=== PATIENT | male | born 1930 | race Caucasian/White ===

== ENCOUNTER 2017-07-18 07:43 | Inpatient (IN) | payer MEDICARE ==
--- NOTE | 2017-07-18 08:15 | ED ---
GI Bleed HPI - General Chief complaint: GI Bleed Stated complaint: GI bleed Time Seen by Provider: 07/18/17 07:59 Source: patient, RN notes reviewed Mode of arrival: ambulatory Limitations: no limitations - History of Present Illness Initial comments: This 87-year-old male who states he had the onset this morning of bright red blood per rectum. He states he had a small a lot of bleeding about a week ago but today he had quite a bit. He has no prior history of GI bleeding no prior history of abdominal surgeries. He denies any lightheadedness dizziness or any overt abdominal pain. No prior history of hemorrhoids. No recent episodes of constipation. MD complaint: gross hematochezia - Related Data Home Medications Medication Instructions Recorded Confirmed Omeprazole [PriLOSEC] 20 mg PO HS 04/19/14 07/18/17 Lisinopril-Hctz 20-25 mg 1 tab PO HS 07/18/15 07/18/17 [Zestoretic 20-25] Allopurinol [Zyloprim] 300 mg PO HS 07/18/17 07/18/17 Aspirin EC [Ecotrin Low Dose] 81 mg PO HS 07/18/17 07/18/17 Simvastatin [Zocor] 10 mg PO HS 07/18/17 07/18/17 amLODIPine [Norvasc] 2.5 mg PO HS 07/18/17 07/18/17 Allergies Allergy/AdvReac Type Severity Reaction Status Date / Time Penicillins Allergy Rash/Hives Verified 07/18/17 09:08 Review of Systems ROS Statement: Those systems with pertinent positive or pertinent negative responses have been documented in the HPI. ROS Other: All systems not noted in ROS Statement are negative. 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, LEAKY HEART VALVE History of Any Multi-Drug Resistant Organisms: None Reported Past Surgical History: Adenoidectomy, Appendectomy, Joint Replacement, Tonsillectomy Additional Past Surgical History / Comment(s): CATARACTS, LT HIP REPLACEMENT, COLONOSCOPY/1 POLYP REMOVED(BENIGN), X4 EGD,S, HAD SURGURY ON "VALVE IN STOMACH " 1978 IN [place] Past Anesthesia/Blood Transfusion Reactions: No Reported Reaction Past Psychological History: No Psychological Hx Reported Smoking Status: Former smoker Past Alcohol Use History: Occasional Past Drug Use History: None Reported - Past Family History Father Family Medical History: Hypertension Additional Family Medical History / Comment(s): IN HIS LATE 30'S CEREBRAL HEMMORRAGE Mother Family Medical History: Dementia Additional Family Medical History / Comment(s): AGE 92 General Exam - General Exam Comments Initial Comments: This is a well-developed well-nourished awake alert oriented times 3 male Limitations: no limitations General appearance: alert, in no apparent distress Head exam: Present: atraumatic, normocephalic, normal inspection Eye exam: Present: normal appearance, PERRL, EOMI. Absent: scleral icterus, conjunctival injection, periorbital swelling ENT exam: Present: normal exam, mucous membranes moist Neck exam: Present: normal inspection. Absent: tenderness, meningismus, lymphadenopathy Respiratory exam: Present: normal lung sounds bilaterally. Absent: respiratory distress, wheezes, rales, rhonchi, stridor Cardiovascular Exam: Present: regular rate, normal rhythm, normal heart sounds. Absent: systolic murmur, diastolic murmur, rubs, gallop, clicks GI/Abdominal exam: Present: soft, normal bowel sounds. Absent: distended, tenderness, guarding, rebound, rigid, bruit, pulsatile mass, hernia Rectal exam: Present: heme (+) stool, other (Dark and bright red blood per rectum no tenderness palpation some evidence of external and internal hemorrhoids that are nontender. The bleeding is appear to be higher up than the rectum however.) exam: Present: normal inspection Extremities exam: Present: normal inspection, full ROM, normal capillary refill. Absent: tenderness, pedal edema, joint swelling, calf tenderness Back exam: Present: normal inspection Neurological exam: Present: alert, oriented X3, CN II-XII intact Psychiatric exam: Present: normal affect, normal mood Skin exam: Present: warm, dry, intact, normal color. Absent: rash Course Vital Signs 07/18/17 07/18/17 07/18/17 07:53 09:21 10:48 Temperature 97.6 F Pulse Rate 86 64 88 Respiratory 20 16 16 Rate Blood Pressure 122/84 127/67 129/67 O2 Sat by Pulse 99 97 97 Oximetry 07/18/17 11:30 Temperature Pulse Rate 93 Respiratory 16 Rate Blood Pressure 178/97 O2 Sat by Pulse Oximetry Medical Decision Making - Medical Decision Making The patient did present with complaints of lower GI bleeding he denied any chest pain his initial troponin was 0.04. Patient did relate that he had the [place] earlier last week and he does have episodes where he will get some chest discomfort and it will resolve with rest. After initial discussion the patient did not want stay in hospital when I was able convinced him after discussion with Dr. Thornton 2 Witt one more set of cardiac enzymes. Troponin was elevated at 0.382. Patient still asymptomatic. Repeat EKG was done showing a sinus rhythm of 75. Interval 256 QRS duration 94 QT since QTC of 396/442 nonspecific T-wave configuration no change from the earlier one. Patient will be admitted cardiology and GI will be consulted. - Lab Data Result diagrams: 07/18/17 08:20 07/18/17 08:20 Lab Results 07/18/17 07/18/17 07/18/17 Range/Units 08:20 08:20 08:20 WBC 5.6 (3.8-10.6) k/uL RBC 4.54 (4.30-5.90) m/uL Hgb 15.3 (13.0-17.5) gm/dL Hct 45.4 (39.0-53.0) % MCV 100.1 H (80.0-100.0) fL MCH 33.8 (25.0-35.0) pg MCHC 33.8 (31.0-37.0) g/dL RDW 14.0 (11.5-15.5) % Plt Count 175 (150-450) k/uL Neutrophils % 81 % Lymphocytes % 10 % Monocytes % 5 % Eosinophils % 2 % Basophils % 1 % Neutrophils # 4.6 (1.3-7.7) k/uL Lymphocytes # 0.6 L (1.0-4.8) k/uL Monocytes # 0.3 (0-1.0) k/uL Eosinophils # 0.1 (0-0.7) k/uL Basophils # 0.0 (0-0.2) k/uL Macrocytosis Slight PT (9.0-12.0) sec INR (<1.2) APTT (22.0-30.0) sec Sodium 138 (137-145) mmol/L Potassium 3.6 (3.5-5.1) mmol/L Chloride 103 (98-107) mmol/L Carbon Dioxide 23 (22-30) mmol/L Anion Gap 12 mmol/L BUN 8 L (9-20) mg/dL Creatinine 0.65 L (0.66-1.25) mg/dL Est GFR (MDRD) Af Amer >60 (>60 ml/min/1.73 sqM) Est GFR (MDRD) Non-Af >60 (>60 ml/min/1.73 sqM) Glucose 146 H (74-99) mg/dL Calcium 9.8 (8.4-10.2) mg/dL Magnesium 1.6 (1.6-2.3) mg/dL Total Bilirubin 0.9 (0.2-1.3) mg/dL AST 26 (17-59) U/L ALT 31 (21-72) U/L Alkaline Phosphatase 78 (38-126) U/L Total Creatine Kinase 73 (55-170) U/L CK-MB (CK-2) 2.2 (0.0-2.4) ng/mL CK-MB (CK-2) Rel Index 3.0 Troponin I 0.040 H* (0.000-0.034) ng/mL Total Protein 6.7 (6.3-8.2) g/dL Albumin 3.8 (3.5-5.0) g/dL Stool Occult Blood (Negative) Blood Type Blood Type Recheck Antibody Screen Spec Expiration Date 07/18/17 07/18/17 07/18/17 Range/Units 08:20 08:20 08:20 WBC (3.8-10.6) k/uL RBC (4.30-5.90) m/uL Hgb (13.0-17.5) gm/dL Hct (39.0-53.0) % MCV (80.0-100.0) fL MCH (25.0-35.0) pg MCHC (31.0-37.0) g/dL RDW (11.5-15.5) % Plt Count (150-450) k/uL Neutrophils % % Lymphocytes % % Monocytes % % Eosinophils % % Basophils % % Neutrophils # (1.3-7.7) k/uL Lymphocytes # (1.0-4.8) k/uL Monocytes # (0-1.0) k/uL Eosinophils # (0-0.7) k/uL Basophils # (0-0.2) k/uL Macrocytosis PT 12.4 H (9.0-12.0) sec INR 1.3 H (<1.2) APTT 24.7 (22.0-30.0) sec Sodium (137-145) mmol/L Potassium (3.5-5.1) mmol/L Chloride (98-107) mmol/L Carbon Dioxide (22-30) mmol/L Anion Gap mmol/L BUN (9-20) mg/dL Creatinine (0.66-1.25) mg/dL Est GFR (MDRD) Af Amer (>60 ml/min/1.73 sqM) Est GFR (MDRD) Non-Af (>60 ml/min/1.73 sqM) Glucose (74-99) mg/dL Calcium (8.4-10.2) mg/dL Magnesium (1.6-2.3) mg/dL Total Bilirubin (0.2-1.3) mg/dL AST (17-59) U/L ALT (21-72) U/L Alkaline Phosphatase (38-126) U/L Total Creatine Kinase (55-170) U/L CK-MB (CK-2) (0.0-2.4) ng/mL CK-MB (CK-2) Rel Index Troponin I (0.000-0.034) ng/mL Total Protein (6.3-8.2) g/dL Albumin (3.5-5.0) g/dL Stool Occult Blood Positive (Negative) Blood Type A Negative Blood Type Recheck A Neg Antibody Screen NEGATIVE Spec Expiration Date 07/21/2017 - 231907/18/17 Range/Units 11:54 WBC (3.8-10.6) k/uL RBC (4.30-5.90) m/uL Hgb (13.0-17.5) gm/dL Hct (39.0-53.0) % MCV (80.0-100.0) fL MCH (25.0-35.0) pg MCHC (31.0-37.0) g/dL RDW (11.5-15.5) % Plt Count (150-450) k/uL Neutrophils % % Lymphocytes % % Monocytes % % Eosinophils % % Basophils % % Neutrophils # (1.3-7.7) k/uL Lymphocytes # (1.0-4.8) k/uL Monocytes # (0-1.0) k/uL Eosinophils # (0-0.7) k/uL Basophils # (0-0.2) k/uL Macrocytosis PT (9.0-12.0) sec INR (<1.2) APTT (22.0-30.0) sec Sodium (137-145) mmol/L Potassium (3.5-5.1) mmol/L Chloride (98-107) mmol/L Carbon Dioxide (22-30) mmol/L Anion Gap mmol/L BUN (9-20) mg/dL Creatinine (0.66-1.25) mg/dL Est GFR (MDRD) Af Amer (>60 ml/min/1.73 sqM) Est GFR (MDRD) Non-Af (>60 ml/min/1.73 sqM) Glucose (74-99) mg/dL Calcium (8.4-10.2) mg/dL Magnesium (1.6-2.3) mg/dL Total Bilirubin (0.2-1.3) mg/dL AST (17-59) U/L ALT (21-72) U/L Alkaline Phosphatase (38-126) U/L Total Creatine Kinase (55-170) U/L CK-MB (CK-2) (0.0-2.4) ng/mL CK-MB (CK-2) Rel Index Troponin I 0.382 H* (0.000-0.034) ng/mL Total Protein (6.3-8.2) g/dL Albumin (3.5-5.0) g/dL Stool Occult Blood (Negative) Blood Type Blood Type Recheck Antibody Screen Spec Expiration Date - EKG Data -: EKG Interpreted by Me EKG shows normal: sinus rhythm (Sinus rhythm with occasional PVCs rate was 61. Interval 218 QRS 102 QT since QTC of 412/414 minimal voltage criteria for LVH septal changes are noted.) - Radiology Data Radiology results: report reviewed (I did review the imaging and report. No acute findings.), image reviewed Disposition Clinical Impression: Lower GI bleed, Non-ST elevation myocardial infarction (NSTEMI) Disposition: ADMITTED IP TO THIS HOSP Condition: Stable Referrals: Delroy Thornton MD [Primary Care Provider] - 1-2 days
[2017-07-18 08:33] LABS: Basophils % (A) 1 %; Eosinophils # (A) 0.1 k/uL (0-0.7); Eosinophils % (A) 2 %; HCT 45.4 % (39.0-53.0); HGB 15.3 gm/dL (13.0-17.5); Lymphocytes # (A) 0.6 k/uL (1.0-4.8); Lymphocytes % (A) 10 %; MCH 33.8 pg (25.0-35.0); MCHC 33.8 g/dL (31.0-37.0); MCV 100.1 fL (80.0-100.0); Macrocytosis Slight; Mean Platelet Volume 7.1; Monocytes # (A) 0.3 k/uL (0-1.0); Monocytes % (A) 5 %; Neutrophils # (A) 4.6 k/uL (1.3-7.7); Neutrophils % (A) 81 %; Platelet Count 175 k/uL (150-450); RBC 4.54 m/uL (4.30-5.90); WBC 5.6 k/uL (3.8-10.6)
[2017-07-18 08:40] LABS: ALT 31 U/L (21-72); AST 26 U/L (17-59); Albumin 3.8 g/dL (3.5-5.0); Alkaline Phosphatase 78 U/L (38-126); Anion Gap 12 mmol/L; Blood Urea Nitrogen 8 mg/dL (9-20); Calcium 9.8 mg/dL (8.4-10.2); Carbon Dioxide 23 mmol/L (22-30); Chloride 103 mmol/L (98-107); Glucose 146 mg/dL (74-99); Magnesium 1.6 mg/dL (1.6-2.3); Potassium 3.6 mmol/L (3.5-5.1); Sodium 138 mmol/L (137-145); Total Bilirubin 0.9 mg/dL (0.2-1.3); Total Protein 6.7 g/dL (6.3-8.2)
--- NOTE | 2017-07-18 08:43 | XR ---
EXAMINATION TYPE: XR abdomen 1V , 2 VIEWS DATE OF EXAM ORDERED: 07/18/2017 HISTORY: Pain. COMPARISON: None. FINDINGS: The lung bases are clear. The heart is upper limits of normal in size. There is been previous epigastric surgery. The abdominal gas pattern is normal. There is no evidence of obstruction or free air. There are phleb oliths in the pelvis. There is degenerative change in the right hip. There is a left hip prosthesis i n place. IMPRESSION: NO ACUTE INTRA-ABDOMINAL ABNORMALITY.
[2017-07-18 08:50] LABS: INR 1.3 (<1.2); Partial Thromboplastin Time 24.7 sec (22.0-30.0); Prothrombin Time 12.4 sec (9.0-12.0)
[2017-07-18 09:11] LABS: Creatine Kinase MB 2.2 ng/mL (0.0-2.4)
[2017-07-18 09:17] LABS: Troponin I 0.04 ng/mL (0.000-0.034)
--- NOTE | 2017-07-18 13:43 | ED ---
Medical Decision Making - Lab Data Result diagrams: 07/18/17 08:20 07/18/17 08:20 Lab Results 07/18/17 07/18/17 07/18/17 Range/Units 08:20 08:20 08:20 WBC 5.6 (3.8-10.6) k/uL RBC 4.54 (4.30-5.90) m/uL Hgb 15.3 (13.0-17.5) gm/dL Hct 45.4 (39.0-53.0) % MCV 100.1 H (80.0-100.0) fL MCH 33.8 (25.0-35.0) pg MCHC 33.8 (31.0-37.0) g/dL RDW 14.0 (11.5-15.5) % Plt Count 175 (150-450) k/uL Neutrophils % 81 % Lymphocytes % 10 % Monocytes % 5 % Eosinophils % 2 % Basophils % 1 % Neutrophils # 4.6 (1.3-7.7) k/uL Lymphocytes # 0.6 L (1.0-4.8) k/uL Monocytes # 0.3 (0-1.0) k/uL Eosinophils # 0.1 (0-0.7) k/uL Basophils # 0.0 (0-0.2) k/uL Macrocytosis Slight PT (9.0-12.0) sec INR (<1.2) APTT (22.0-30.0) sec Sodium 138 (137-145) mmol/L Potassium 3.6 (3.5-5.1) mmol/L Chloride 103 (98-107) mmol/L Carbon Dioxide 23 (22-30) mmol/L Anion Gap 12 mmol/L BUN 8 L (9-20) mg/dL Creatinine 0.65 L (0.66-1.25) mg/dL Est GFR (MDRD) Af Amer >60 (>60 ml/min/1.73 sqM) Est GFR (MDRD) Non-Af >60 (>60 ml/min/1.73 sqM) Glucose 146 H (74-99) mg/dL Calcium 9.8 (8.4-10.2) mg/dL Magnesium 1.6 (1.6-2.3) mg/dL Total Bilirubin 0.9 (0.2-1.3) mg/dL AST 26 (17-59) U/L ALT 31 (21-72) U/L Alkaline Phosphatase 78 (38-126) U/L Total Creatine Kinase 73 (55-170) U/L CK-MB (CK-2) 2.2 (0.0-2.4) ng/mL CK-MB (CK-2) Rel Index 3.0 Troponin I 0.040 H* (0.000-0.034) ng/mL Total Protein 6.7 (6.3-8.2) g/dL Albumin 3.8 (3.5-5.0) g/dL Stool Occult Blood (Negative) Blood Type Blood Type Recheck Antibody Screen Spec Expiration Date 07/18/17 07/18/17 07/18/17 Range/Units 08:20 08:20 08:20 WBC (3.8-10.6) k/uL RBC (4.30-5.90) m/uL Hgb (13.0-17.5) gm/dL Hct (39.0-53.0) % MCV (80.0-100.0) fL MCH (25.0-35.0) pg MCHC (31.0-37.0) g/dL RDW (11.5-15.5) % Plt Count (150-450) k/uL Neutrophils % % Lymphocytes % % Monocytes % % Eosinophils % % Basophils % % Neutrophils # (1.3-7.7) k/uL Lymphocytes # (1.0-4.8) k/uL Monocytes # (0-1.0) k/uL Eosinophils # (0-0.7) k/uL Basophils # (0-0.2) k/uL Macrocytosis PT 12.4 H (9.0-12.0) sec INR 1.3 H (<1.2) APTT 24.7 (22.0-30.0) sec Sodium (137-145) mmol/L Potassium (3.5-5.1) mmol/L Chloride (98-107) mmol/L Carbon Dioxide (22-30) mmol/L Anion Gap mmol/L BUN (9-20) mg/dL Creatinine (0.66-1.25) mg/dL Est GFR (MDRD) Af Amer (>60 ml/min/1.73 sqM) Est GFR (MDRD) Non-Af (>60 ml/min/1.73 sqM) Glucose (74-99) mg/dL Calcium (8.4-10.2) mg/dL Magnesium (1.6-2.3) mg/dL Total Bilirubin (0.2-1.3) mg/dL AST (17-59) U/L ALT (21-72) U/L Alkaline Phosphatase (38-126) U/L Total Creatine Kinase (55-170) U/L CK-MB (CK-2) (0.0-2.4) ng/mL CK-MB (CK-2) Rel Index Troponin I (0.000-0.034) ng/mL Total Protein (6.3-8.2) g/dL Albumin (3.5-5.0) g/dL Stool Occult Blood Positive (Negative) Blood Type A Negative Blood Type Recheck A Neg Antibody Screen NEGATIVE Spec Expiration Date 07/21/2017 - 231907/18/17 Range/Units 11:54 WBC (3.8-10.6) k/uL RBC (4.30-5.90) m/uL Hgb (13.0-17.5) gm/dL Hct (39.0-53.0) % MCV (80.0-100.0) fL MCH (25.0-35.0) pg MCHC (31.0-37.0) g/dL RDW (11.5-15.5) % Plt Count (150-450) k/uL Neutrophils % % Lymphocytes % % Monocytes % % Eosinophils % % Basophils % % Neutrophils # (1.3-7.7) k/uL Lymphocytes # (1.0-4.8) k/uL Monocytes # (0-1.0) k/uL Eosinophils # (0-0.7) k/uL Basophils # (0-0.2) k/uL Macrocytosis PT (9.0-12.0) sec INR (<1.2) APTT (22.0-30.0) sec Sodium (137-145) mmol/L Potassium (3.5-5.1) mmol/L Chloride (98-107) mmol/L Carbon Dioxide (22-30) mmol/L Anion Gap mmol/L BUN (9-20) mg/dL Creatinine (0.66-1.25) mg/dL Est GFR (MDRD) Af Amer (>60 ml/min/1.73 sqM) Est GFR (MDRD) Non-Af (>60 ml/min/1.73 sqM) Glucose (74-99) mg/dL Calcium (8.4-10.2) mg/dL Magnesium (1.6-2.3) mg/dL Total Bilirubin (0.2-1.3) mg/dL AST (17-59) U/L ALT (21-72) U/L Alkaline Phosphatase (38-126) U/L Total Creatine Kinase (55-170) U/L CK-MB (CK-2) (0.0-2.4) ng/mL CK-MB (CK-2) Rel Index Troponin I 0.382 H* (0.000-0.034) ng/mL Total Protein (6.3-8.2) g/dL Albumin (3.5-5.0) g/dL Stool Occult Blood (Negative) Blood Type Blood Type Recheck Antibody Screen Spec Expiration Date Critical Care Time Critical Care Time: Yes Critical Care Time: 1 minutes of critical care time which includes initial presentation with history physical labs x-rays multiple re-evaluations the patient discussed with the patient and his attending as well as discussed with cardiology. Recent documentation of the above Disposition Clinical Impression: Lower GI bleed, Non-ST elevation myocardial infarction (NSTEMI) Disposition: ADMITTED IP TO THIS [facility] Condition: Stable Referrals: Delroy Thornton MD [Primary Care Provider] - 1-2 days
[2017-07-18] MEDS ORDERED: NALOXONE 0.4 MG/ML 1 ML VIAL IV PRN (13:52)
[2017-07-18] MEDS ORDERED: NITROGLYCERIN SL TABS 0.4 MG TAB SUBLINGUAL PRN (13:56)
[2017-07-18] MEDS: SODIUM CHLORIDE 0.9% 1,000 ML IV SCH (14:28)
[2017-07-18 16:30] VITALS: BMI 25.0
[2017-07-18 17:40] LABS: Basophils % (A) 0 %; Eosinophils % (A) 1 %; HCT 43.4 % (39.0-53.0); HGB 14.1 gm/dL (13.0-17.5); Lymphocytes # (A) 0.8 k/uL (1.0-4.8); Lymphocytes % (A) 15 %; MCH 32.7 pg (25.0-35.0); MCHC 32.5 g/dL (31.0-37.0); MCV 100.4 fL (80.0-100.0); Macrocytosis Slight; Mean Platelet Volume 7.6; Monocytes # (A) 0.3 k/uL (0-1.0); Monocytes % (A) 6 %; Neutrophils % (A) 75 %; Platelet Count 158 k/uL (150-450); RBC 4.32 m/uL (4.30-5.90); RDW 14.4 % (11.5-15.5); WBC 5.3 k/uL (3.8-10.6)
[2017-07-18] MEDS ORDERED: ASPIRIN 81 MG PO SCH (21:00)
[2017-07-18] MEDS ORDERED: amLODIPine 2.5 MG TAB PO SCH (21:00)
[2017-07-18] MEDS ORDERED: ATORVASTATIN 10 MG TAB PO SCH (21:00)
[2017-07-18] MEDS ORDERED: NON-FORMULARY DRUG (Omeprazole 20 MG) PO SCH (21:00)
[2017-07-18] MEDS: ALLOPURINOL 300 MG TAB PO SCH (22:15)
[2017-07-18] MEDS: LISINOPRIL-HCTZ 20-25 MG 1 EACH TAB PO SCH (22:15)
[2017-07-18] MEDS: PANTOPRAZOLE 40 MG/10 ML VIAL IV SCH (23:18)
[2017-07-18 23:36] LABS: HCT 44.6 % (39.0-53.0); HGB 14.4 gm/dL (13.0-17.5); MCH 32.9 pg (25.0-35.0); MCHC 32.4 g/dL (31.0-37.0); MCV 101.4 fL (80.0-100.0); Macrocytosis Slight; Mean Platelet Volume 7.5; Platelet Count 167 k/uL (150-450); RDW 14.8 % (11.5-15.5); WBC 6.7 k/uL (3.8-10.6)
[2017-07-19 01:07] LABS: Glucose,Whole Blood 97 mg/dL (75-99)
[2017-07-19 04:25] LABS: Basophils % (A) 1 %; Eosinophils # (A) 0.1 k/uL (0-0.7); Eosinophils % (A) 1 %; HCT 42.4 % (39.0-53.0); Lymphocytes % (A) 17 %; MCHC 32.9 g/dL (31.0-37.0); MCV 100.3 fL (80.0-100.0); Macrocytosis Slight; Mean Platelet Volume 7.1; Monocytes # (A) 0.4 k/uL (0-1.0); Monocytes % (A) 7 %; Neutrophils # (A) 4.4 k/uL (1.3-7.7); Neutrophils % (A) 71 %; Platelet Count 162 k/uL (150-450); RBC 4.23 m/uL (4.30-5.90); RDW 13.8 % (11.5-15.5); WBC 6.2 k/uL (3.8-10.6)
[2017-07-19 04:38] LABS: Anion Gap 8 mmol/L; Blood Urea Nitrogen 6 mg/dL (9-20); Calcium 9.3 mg/dL (8.4-10.2); Carbon Dioxide 27 mmol/L (22-30); Chloride 102 mmol/L (98-107); Glucose 110 mg/dL (74-99); Magnesium 1.7 mg/dL (1.6-2.3); Phosphorus 3.3 mg/dL (2.5-4.5); Potassium 3.5 mmol/L (3.5-5.1); Sodium 137 mmol/L (137-145)
[2017-07-19] MEDS ORDERED: Potassium Replacement Protocol 1 EACH MISC MISCELLANE PRN (05:12)
[2017-07-19] MEDS ORDERED: Magnesium Replacement Protocol 1 EACH MISC MISCELLANE PRN (05:13)
[2017-07-19] MEDS: MAGNESIUM SULFATE-D5W PMX 1 GM in DEXTROSE/WATER 1 100ML.BAG IVPB SCH ×2 (05:56→07:40)
[2017-07-19] MEDS: PANTOPRAZOLE 40 MG/10 ML VIAL IV SCH ×2 (07:46→21:46)
[2017-07-19] MEDS: POTASSIUM CHLORIDE ER 20 MEQ TAB.ER PO SCH ×2 (07:46→11:35)
--- NOTE | 2017-07-19 09:31 | CONS ---
CONSULTATION Mr. Pabon is an 87-year-old male with a known history of hypertension, hyperlipidemia, and no prior documented history of ischemic heart disease according to him with a history of murmur, who presented to the emergency room because of blood through his stool. He denies any nausea and vomiting, or abdominal discomfort. He denied any change in his breathing. Cardiology consultation was requested because of mild elevation of the troponin. According to the patient, he has episode of chest discomfort when he over exerts himself, but that has been stable for a while and he did not feel any change in the pattern. He denies any peripheral edema. No dizziness. No palpitation. No syncope. He has no history of PND, orthopnea. His coronary risk factors are positive for hypertension and hyperlipidemia. He is a nonsmoker, nondiabetic. His medications at home include aspirin once a day. amlodipine 2.5 mg daily, simvastatin 10 mg daily, omeprazole 20 mg daily, lisinopril HCT 20-25 mg daily, and Zyloprim 300 mg daily. REVIEW OF SYSTEMS: RESPIRATORY SYSTEM: He has no history of documented asthma, emphysema or bronchitis. GI SYSTEM: He had the GI bleeding as noted, but he denies any prior episode. SYSTEM: No dysuria or hematuria. NERVOUS SYSTEM: No stroke or seizure. PHYSICAL EXAMINATION: He is an 87-year-old male, alert, oriented, in no apparent distress. Blood pressure 122/70 with the heart rate in the 80s. HEAD: Normocephalic. EYES: Sclerae nonicteric. NECK: Good carotid upstroke. No bruit, No jugular venous distention. LUNGS: Clear to auscultation. HEART: Regular rate and rhythm. S1, S2 with and systolic ejection murmur 3/6 mid- peaking heard at the base as well as the apex. ABDOMEN: Soft, nontender. Positive bowel sounds. No organomegaly. EXTREMITIES: No edema. Intact distal pulses. LAB DATA: Lab data revealed a white blood cell of 6.2, hemoglobin of 15.3 on admission down to 14 today. BUN and creatinine 6 and 0.6. His troponin on admission of 0.048. The peak is 0.355 and he is down to 0.164. His EKG revealed a sinus mechanism with sinus arrhythmia, left ventricular hypertrophy and nonspecific ST-T wave changes. IMPRESSION: 1. Gastrointestinal bleeding, source unclear. Workup in progress. 2. Evidence consistent with non ST-segment elevation myocardial infarction. By history, the patient is describing symptoms of chronic stable angina pectoris. 3. Aortic valve murmur consistent with aortic stenosis, probably moderate in severity. 4. History of hypertension. 5. Hyperlipidemia. RECOMMENDATION: From the cardiac standpoint, I will stop his aspirin and amlodipine. I will add to his regimen a beta ainsley and isosorbide. I will obtain an echocardiogram with Doppler. The patient is not a candidate for aggressive cardiac workup at this time. He is pain- free. Depending on his progress, further recommendation will be made. Thank you for this consult. We will follow with you. MMODL / IJN: [id number] /
--- NOTE | 2017-07-19 11:05 | P.PN ---
Subjective Progress Note Date: 07/19/17 Principal diagnosis: Herbal vessel coronary artery disease, non-ST elevated myocardial infarction, status post emergent 3-vessel CABG, postop day 5 This is a 51-year-old white male with triple vessel coronary artery disease, presented recently with non-ST elevation myocardial infarction, remote history of pulmonary embolism, strong family history of premature coronary artery disease, patient had urgent coronary artery bypass grafting 3 vessels, PIERRE to LAD, reverse saphenous vein graft to diagonal branch reverse saphenous vein graft to right coronary artery. I saw the patient preoperatively and I saw him yesterday postoperatively. 3 hours after his surgery, patient was extubated uneventfully. He tolerated the extubation well, doing great today, relatively asymptomatic, doing excellent with incentive spirometry, chest x-ray showed minimal atelectasis at the left base, felt to be not clinically significant. CBC is relatively normal. Basic metabolic profile is normal renal profile is normal. Reevaluated today on 07/16/2017, patient is doing well, chest x-ray is reassuring except for minimal tiny bit of atelectasis at the left base as expected. Tubes have been removed. Patient denies any shortness of breath no cough no wheezing no chest pain.all labs were reviewed and they seem to be relatively unremarkable. Reevaluated today on 07/17/2017, doing great, asymptomatic, no cough no wheezing no shortness of breath, no pain, chest x-ray showed minimal atelectasis and a small tiny left pleural effusion. CBC is relatively normal hemoglobin is 11.4, basic metabolic profile and renal profile are normal. Reevaluated today on 07/18/2017, continues to do extremely well, asymptomatic, off oxygen, chest x-ray continues to show minimal atelectasis of the left base.all labs were reviewed, hemoglobin is 10.4 basic metabolic profile is normal. Chest x-ray was also reviewed. On 07/19/2017 patient is seen in intensive care, doing extremely well, he is on room air, O2 sat is 97%, respirations are even and nonlabored, lung sounds are clear to auscultation. Hemodynamically stable, afebrile. Denies any acute distress, has been compliant with his incentive spirometry. Chest x-ray from this morning has been reviewed, it shows cardiomegaly, and a small left pleural effusion. Patient is not on any IV drips, his IV has been hep-locked. Lab work from today shows a normal white count, 6.5, hemoglobin is 10.3, no electrolyte abnormalities, B1 is 22, creatinine 0.90. Patient is in normal sinus rhythm on a monitor. Denies any chest pain, or shortness of breath. No acute events overnight, patient has been in the ambulating in the hallway, with no signs of rest or distress. Cardiothoracic surgery has cleared him for discharge home today. Objective - Vital Signs Vital signs: Vital Signs Temp 97.8 F 07/19/17 07:30 Pulse 101 H 07/19/17 07:30 Resp 14 07/19/17 07:56 BP 122/74 07/19/17 07:30 Pulse Ox 96 07/19/17 07:30 Intake & Output 07/18/17 07/19/17 07/19/17 18:59 06:59 18:59 Intake Total 210 Output Total 0 550 150 Balance 0 -550 60 Weight 68.039 kg 65.9 kg Intake: IV 10 Sodium Chloride 0.9% 1, 10 000 ml @ 20 mls/hr IV . Q24H [facility] Rx#:[id number] Intake, IV Titration 200 Amount Magnesium Sulfate-D5w Pmx 200 1 gm In Dextrose/Water 1 100ml.bag @ 100 mls/hr IVPB Q1H [facility] Rx#: [id number] Output: Urine 0 550 150 Other: Voiding Method Urinal Urinal # Voids 1 # Bowel Movements 1 1 - Exam Physical Exam: Revealed a 51-year-old white male in no distress, on room air HEENT:[Neck is supple.] [No neck masses.] [No thyromegaly.] [No JVD.] Chest: [Diminished breath sounds at the left base, no crackles nor rhonchi no wheezes.] Cardiac Exam: [Normal S1 and S2, no S3 gallop, no murmur.] Abdomen: [Soft, nontender, no megaly, no rebound, no guarding, normal bowel sounds.] Extremities: [No clubbing, no edema, no cyanosis.] Neurological Exam: [No focal neurologic deficit. Lymphatics: No lymphadenopathy Psychiatric: Normal mood affect and mental status examination.] - Labs CBC & Chem 7: 07/19/17 04:05 07/19/17 04:05 Labs: Abnormal Lab Results - Last 24 Hours (Table) 07/18/17 07/18/17 07/18/17 Range/Units 11:54 17:20 17:20 RBC (4.30-5.90) m/uL MCV 100.4 H (80.0-100.0) fL Lymphocytes # 0.8 L (1.0-4.8) k/uL BUN (9-20) mg/dL Creatinine (0.66-1.25) mg/dL Glucose (74-99) mg/dL Troponin I 0.382 H* 0.355 H* (0.000-0.034) ng/mL 07/18/17 07/18/17 07/19/17 Range/Units 23:23 23:23 04:05 RBC (4.30-5.90) m/uL MCV 101.4 H (80.0-100.0) fL Lymphocytes # (1.0-4.8) k/uL BUN (9-20) mg/dL Creatinine (0.66-1.25) mg/dL Glucose (74-99) mg/dL Troponin I 0.228 H* 0.164 H* (0.000-0.034) ng/mL 07/19/17 07/19/17 Range/Units 04:05 04:05 RBC 4.23 L (4.30-5.90) m/uL MCV 100.3 H (80.0-100.0) fL Lymphocytes # (1.0-4.8) k/uL BUN 6 L (9-20) mg/dL Creatinine 0.60 L (0.66-1.25) mg/dL Glucose 110 H (74-99) mg/dL Troponin I (0.000-0.034) ng/mL Assessment and Plan Plan: Assessment: 1 acute non-ST elevation myocardial infarction 2 severe coronary artery disease as noted on the cardiac catheterization, status post three-vessel coronary artery bypass surgery, postoperative day #4 3 history of tobacco dependence syndrome but no significant COPD symptoms based on the clinical history. However FEV1 testing is pending. 4 remote history of pulmonary embolism provoked by longer driving hours. 5 family history of premature coronary artery disease. 6 minimal left lower lobe atelectasis, and small tiny left pleural effusion no need for intervention, will likely resolve on its own and with incentive spirometry. Recommendation: Patient is doing very well, no acute events overnight, hemodynamically stable, denies any shortness of breath or chest pain. Has been ambulating in the hallway multiple times a day, tolerating activity very well. Lab work has been reviewed, no acute abnormalities were noted. Chest x-ray just shows cardiomegaly and a small left pleural effusion. Patient is on room air. Being discharged home today her cardiothoracic surgery. From our standpoint, he is stable for discharge, he will need a follow-up appointment with Dr. Beal any office in one week. I performed a history & physical examination of the patient and discussed their management with my nurse practitioner, Suzie Ferraro. I reviewed the nurse practitioner's note and agree with the documented findings and plan of care. Lung sounds are clear to auscultation. The findings and the impression was discussed with the patient. I attest to the documentation by the nurse practitioner. Time with Patient: Less than 30
--- NOTE | 2017-07-19 11:16 | ECHOF ---
Referral Reason:htn MEASUREMENTS -------- HEIGHT: 165.1 cm WEIGHT: 65.8 kg BP: 142/70 IVSd: 1.6 cm (0.6 - 1.1) LVIDd: 4.6 cm (3.9 - 5.3) LVPWd: 1.0 cm (0.6 - 1.1) IVSs: 1.7 cm LVIDs: 3.3 cm LVPWs: 1.5 cm LAESV Index (A-L): 26.59 ml/m Ao Diam: 4.2 cm (2.0 - 3.7) AV Cusp: 1.0 cm (1.5 - 2.6) LA Diam: 2.9 cm (2.7 - 3.8) MV EXCURSION: 18.438 mm (> 18.000) MV EF SLOPE: 53 mm/s (70 - 150) EPSS: 0.8 cm MV E Chau: 0.46 m/s MV DecT: 291 ms MV A Chau: 0.89 m/s MV E/A Ratio: 0.51 AV maxP.09 mmHg AV maxP.09 mmHg AV meanP.17 mmHg RAP: 5.00 mmHg RVSP: 27.08 mmHg FINDINGS -------- Sinus rhythm. This was a technically adequate study. The left ventricular size is normal. There is moderate concentric left ventricular hypertrophy. O verall left ventricular systolic function is mildly impaired with, an EF between 45 - 50 %. The right ventricle is normal in size. Normal LA size by volume 22+/-6 ml/m2. The right atrial size is normal. There is moderate aortic valve sclerosis. There is mild aortic regurgitation. There is moderate a ortic stenosis present. Peak/mean gradient across the Aortic Valve is 49.09mmHg / 25.17mmHg. Mild mitral annular calcification present. Mild mitral regurgitation is present. Mild tricuspid regurgitation present. There is no evidence of pulmonary hypertension. The right v entricular systolic pressure, as measured by Doppler, is 27.08mmHg. There is no pulmonic regurgitation present. The aortic root size is normal. There is no pericardial effusion. CONCLUSIONS -------- 1. The left ventricular size is normal. 2. There is moderate concentric left ventricular hypertrophy. 3. Overall left ventricular systolic function is mildly impaired with, an EF between 45 - 50 %. 4. Normal LA size by volume 22+/-6 ml/m2. 5. There is moderate aortic valve sclerosis. 6. There is mild aortic regurgitation. 7. There is moderate aortic stenosis present. 8. Peak/mean gradient across the Aortic Valve is 49.09mmHg / 25.17mmHg. 9. Mild mitral annular calcification present. 10. Mild mitral regurgitation is present. 11. Mild tricuspid regurgitation present. 12. There is no evidence of pulmonary hypertension. 13. The right ventricular systolic pressure, as measured by Doppler, is 27.08mmHg. 14. There is no pulmonic regurgitation present. 15. The aortic root size is normal. 16. There is no pericardial effusion. ACOUSTICAL CARPENTER: Arlene Melgar RDCS
--- NOTE | 2017-07-19 11:34 | P.CNPUL ---
History of Present Illness Consult date: 07/19/17 Requesting physician: Delroy Thornton Reason for consult: other Chief complaint: Lower GI bleeding with bright red blood per rectum. History of present illness: Charles is a 87-year-old white male patient follows with Dr. Thornton, resented to the emergency department on 07/18/2017 at 7:00 in the morning with complaints of bright red blood per rectum. Prior to that he did have small amount of rectal bleeding a week ago. No previous history of GI bleeding. He is on the low-dose aspirin 81 mg by mouth daily, no other blood thinners. Denied any shortness of breath, lightheadedness or dizziness. Denied not any chest pain. Past medical history is positive for hypertension, hyperlipidemia, GERD/reflux, osteoarthritis, has had a colonoscopy with a polyp removed over 10 years ago, has had 2 prior EGDs for his symptoms of gastroesophageal reflux. Patient is an ex-smoker, no significant history of EtOH, only a social drinker occasionally. Abdominal x-ray showed no acute intra-abdominal abnormality. Lab work showed normal white count of 5.6, hemoglobin of 15.3 on admission, INR is 1.3, no electrolyte abnormality, BUN of 8, and creatinine 0.65. Liver enzymes were within normal. Patient did have a mild troponin leak, with the highest one on admission at 0.040. Stool occult was positive. Initial twelve- lead EKG on 12/16/2017 showed sinus rhythm with first-degree AV block and occasional PVCs, nonspecific ST-T wave changes. Cardiology has been consulted. Patient had one episode of bloody bowel movement last night, but nothing since then, remains on room air, and his vital signs are stable. Hemoglobin remained stable at 14.4 on today's lab work. Has not required any blood transfusions. Review of Systems All systems: negative Constitutional: Denies chills, Denies fever Eyes: denies blurred vision, denies pain Ears, nose, mouth and throat: Denies headache, Denies sore throat Cardiovascular: Denies chest pain, Denies shortness of breath Respiratory: Denies cough Gastrointestinal: Denies abdominal pain, Denies diarrhea, Denies nausea, Denies vomiting Musculoskeletal: Denies myalgias Integumentary: Denies pruritus, Denies rash Neurological: Denies numbness, Denies weakness Psychiatric: Denies anxiety, Denies depression Endocrine: Denies fatigue, Denies weight change 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, LEAKY HEART VALVE History of Any Multi-Drug Resistant Organisms: None Reported Past Surgical History: Adenoidectomy, Appendectomy, Joint Replacement, Tonsillectomy Additional Past Surgical History / Comment(s): CATARACTS, LT HIP REPLACEMENT, COLONOSCOPY/1 POLYP REMOVED(BENIGN), X4 EGD,S, HAD SURGURY ON "VALVE IN STOMACH " 1978 IN [place] Past Anesthesia/Blood Transfusion Reactions: No Reported Reaction Past Psychological History: No Psychological Hx Reported Additional Psychological History / Comment(s): Patient lives alone and has no family here.GETS NO OUT SIDE SERVICES BUT HIS NEIGHBORS HELP HIM OUT. Smoking Status: Former smoker Past Alcohol Use History: Occasional Additional Past Alcohol Use History / Comment(s): STARTED SMOKING A TEENAGER SMOKED FOR LESS THAN 1 YEAR THEN QUIT, STATES HAS A GLASS OF WINE A DAY AND OCC WILL GO OUT FOR A DRAFT BEER. Past Drug Use History: None Reported - Past Family History Father Family Medical History: Hypertension Additional Family Medical History / Comment(s): IN HIS LATE 30S CEREBRAL HEMMORRAGE Mother Family Medical History: Dementia Additional Family Medical History / Comment(s): AGE 92 Medications and Allergies Home Medications Medication Instructions Recorded Confirmed Type Omeprazole [PriLOSEC] 20 mg PO HS 04/19/14 07/18/17 History Lisinopril-Hctz 20-25 mg 1 tab PO HS 07/18/15 07/18/17 History [Zestoretic 20-25] Allopurinol [Zyloprim] 300 mg PO HS 07/18/17 07/18/17 History Aspirin EC [Ecotrin Low Dose] 81 mg PO HS 07/18/17 07/18/17 History Simvastatin [Zocor] 10 mg PO HS 07/18/17 07/18/17 History amLODIPine [Norvasc] 2.5 mg PO HS 07/18/17 07/18/17 History Allergies Allergy/AdvReac Type Severity Reaction Status Date / Time Penicillins Allergy Rash/Hives Verified 07/18/17 09:08 Physical Exam Vitals: Vital Signs Temp Pulse Pulse Resp BP BP Pulse Ox 07/19/17 07:56 14 07/19/17 07:30 97.8 F 101 H 26 H 122/74 96 07/19/17 07:00 81 17 110/64 95 07/19/17 06:30 55 L 14 155/75 96 07/19/17 06:00 71 21 137/74 97 07/19/17 05:30 66 12 114/63 96 07/19/17 05:00 51 L 13 114/63 96 07/19/17 04:30 60 28 H 120/68 96 07/19/17 04:00 97.9 F 56 L 11 L 120/68 95 07/19/17 03:30 64 11 L 96 07/19/17 03:00 71 23 120/68 96 07/19/17 02:30 67 18 128/70 95 07/19/17 02:00 63 23 131/69 94 L 07/19/17 01:30 66 97 07/19/17 01:10 76 98 07/19/17 00:00 18 07/18/17 23:30 97.3 F L 86 18 117/84 97 07/18/17 20:00 97.5 F L 101 H 18 170/81 96 07/18/17 15:15 97.1 F L 73 16 172/78 97 07/18/17 14:30 96 18 142/84 98 07/18/17 14:15 97.1 F L 73 16 172/78 97 07/18/17 11:30 93 16 178/97 Intake and Output 07/18/17 07/19/17 07/19/17 22:59 06:59 14:59 Intake Total 210 Output Total 350 200 150 Balance -350 -200 60 Intake: IV 10 Sodium Chloride 0.9% 1, 10 000 ml @ 20 mls/hr IV . Q24H [facility] Rx#:[id number] Intake, IV Titration 200 Amount Magnesium Sulfate-D5w Pmx 200 1 gm In Dextrose/Water 1 100ml.bag @ 100 mls/hr IVPB Q1H [facility] Rx#: [id number] Output: Urine 350 200 150 Other: Voiding Method Urinal Urinal # Voids 1 1 # Bowel Movements 1 1 Weight 65.9 kg GENERAL EXAM: Alert, active, comfortable in no apparent distress. HEAD: Normocephalic/atraumatic. EYES: Normal reaction of pupils, equal size. Conjunctiva pink, sclera white. NOSE: Clear with pink turbinates. THROAT: No erythema or exudates. NECK: No masses, no JVD, no thyroid enlargement, no adenopathy. CHEST: No chest wall deformity. Symmetrical expansion. LUNGS: Equal air entry with no crackles, wheeze, rhonchi or dullness. CVS: Regular rate and rhythm, normal S1 and S2, no gallops, there is a systolic ejection murmur 3/6 ABDOMEN: Soft, nontender. No hepatosplenomegaly, normal bowel sounds, no guarding or rigidity. EXTREMITIES: No clubbing, no edema, no cyanosis, 2+ pulses and upper and lower extremities. MUSCULOSKELETAL: Muscle strength and tone normal. SPINE: No scoliosis or deformity SKIN: No rashes CENTRAL NERVOUS SYSTEM: Alert and oriented -3. No focal deficits, tone is normal in all 4 extremities. PSYCHIATRIC: Alert and oriented -3. Appropriate affect. Intact judgment and insight. Results - Laboratory Findings CBC and BMP: 07/19/17 04:05 07/19/17 04:05 PT/INR, D-dimer PT 12.4 sec (9.0-12.0) H 07/18/17 08:20 INR 1.3 (<1.2) H 07/18/17 08:20 Abnormal lab findings: Abnormal Labs 07/18/17 07/18/17 07/18/17 08:20 08:20 08:20 RBC MCV 100.1 H Lymphocytes # 0.6 L PT INR BUN 8 L Creatinine 0.65 L Glucose 146 H Troponin I 0.040 H* 07/18/17 07/18/17 07/18/17 08:20 11:54 17:20 RBC MCV Lymphocytes # PT 12.4 H INR 1.3 H BUN Creatinine Glucose Troponin I 0.382 H* 0.355 H* 07/18/17 07/18/17 07/18/17 17:20 23:23 23:23 RBC MCV 100.4 H 101.4 H Lymphocytes # 0.8 L PT INR BUN Creatinine Glucose Troponin I 0.228 H* 07/19/17 07/19/17 07/19/17 04:05 04:05 04:05 RBC 4.23 L MCV 100.3 H Lymphocytes # PT INR BUN 6 L Creatinine 0.60 L Glucose 110 H Troponin I 0.164 H* - Diagnostic Findings Additional studies: Twelve-lead EKG 2 reviewed, abdominal x-ray Assessment and Plan Plan: Assessment: #1. Acute lower GI bleeding with bright red blood per rectum #2. Non-ST elevated [place], there is a troponin leak, troponin topped out at 0.040 , nonspecific ST-T changes in the anterior leads, urology following #3. History of colonoscopy would removal of a polyp, over 10 years ago #4. History of GERD, with 2 prior EGDs #5. Hypertension #6. Hyperlipidemia #7. Osteoarthritis Plan: Continue monitoring for bleeding, patient hasn't had any bloody bowel movements since last night. Remains hemodynamically stable. Tolerating clear liquid diet. Awaiting input of GI service. Patient was seen in consultation for cardiology, their consultation note was reviewed. Patient denies any chest pain or shortness of breath. He is hemodynamically stable, he has not required any blood transfusions. From pulmonary/critical care standpoint, patient is stable to transfer out of the unit. Continue Protonix I performed a history & physical examination of the patient and discussed their management with my nurse practitioner, Suzie Ferraro. I reviewed the nurse practitioner's note and agree with the documented findings and plan of care. Lung sounds are clear. The findings and the impression was discussed with the patient. I attest to the documentation by the nurse practitioner. Time with Patient: Greater than 30
[2017-07-19] MEDS: METOPROLOL TARTRATE 25 MG TAB PO SCH ×2 (11:35→21:45)
[2017-07-19] MEDS: ISOSORBIDE MONONITRATE ER 30 MG TAB.ER.24H PO SCH (11:36)
--- NOTE | 2017-07-19 14:49 | P.HPIM ---
<Nancy Jain - Last Filed: 07/19/17 14:48> History of Present Illness H&P Date: 07/19/17 Chief Complaint: Rectal bleeding 87-year-old male presented to the emergency room on 07/18/2017 with a chief complaint of bright red blood per rectum. The patient noted that he had a small amount of bleeding per rectum about a week ago and today he had a another episode of blood which was larger and quantity then the previous episode. The patient has a history of gastroesophageal reflux disease, hyperlipidemia, hypertension, osteoarthritis, vertigo, and gout. He states he has had a colonoscopy in the past with one polyp removed which was benign. He is a former cigarette smoker. In the emergency room, an abdominal x-ray was completed which was negative for acute process. EKG revealed sinus rhythm with first-degree AV block, PVCs, and nonspecific ST-T wave changes. Laboratory studies reveal white count 5.6, hemoglobin 15.3, platelet count 175, INR 1.3, sodium 138, potassium 3.6, BUN of 8, creatinine 0.65, and magnesium 1.6. Troponins were 0.040, 0.382, 0.355, and 0.228. The patient did report that he had mild chest discomfort approximately one week ago when he was shoveling snow but it subsided upon rest. The patient states this is chronic for him and was similiar to previous episodes he has had. Stool for occult blood was positive. He was admitted to the hospital under the care of Dr. Duckworth. Consultations were placed to pulmonology, cardiology, and gastroenterology. An echocardiogram was completed which revealed ejection fraction of 45-50%, mild aortic regurgitation, moderate aortic stenosis, mild mitral regurgitation, and mild tricuspid regurgitation. He was evaluated by waste/materials exchange specialist who discontinued his aspirin and amlodipine and started him on metoprolol and Imdur. The patient was found to not be a candidate for aggressive cardiac workup at this time and will continue with medical management per cardiology. The patient was seen and examined at the bedside in the intensive care unit. He is awake and alert. Oriented x 3. Denies chest pain or pressure. Denies shortness of breath. Denies further episodes of rectal bleeding. He denies pain or discomfort. He is tolerating clear liquid diet. Denies nausea or vomiting. Vital signs remain stable. Hemoglobin is stable at 14.0 Review of Systems GENERAL: Patient denies fever. Denies chills. EYES: Denies blurred vision. Denies vision changes. Denies eye pain. EARS, NOSE, MOUTH, & THROAT: Denies headache. Denies sore throat. Denies ear pain. RESPIRATORY: Denies cough. Denies shortness of breath. Denies sputum production. Denies hemoptysis. CARDIOVASCULAR: Positive for isolated episode of exertional chest pain prior to admission. Currently denies chest pain or pressure. Denies palpitations. Denies arrhythmias. GASTROINTESTINAL: Positive for bright red blood per rectum. Positive for history of GERD. Denies abdominal pain. Denies diarrhea. Denies constipation. Denies nausea. Denies vomiting. GENITOURINARY: Denies urinary frequency. Denies burning. Denies dysuria. Denies cloudy urine. Denies blood in the urine. MUSCULOSKELETAL: Denies myalgias. Denies joint swelling. Denies decreased range of motion beyond patients baseline. INTEGUMENTARY: Denies pruitis. Denies rash. PSYCHIATRIC: Denies suicidal or homicial ideations. ENDOCRINE: Denies weight change. Denies polydipsia. Denies polyuria. HEMATOLOGIC: Denies bleeding disorders. 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, LEAKY HEART VALVE History of Any Multi-Drug Resistant Organisms: None Reported Past Surgical History: Adenoidectomy, Appendectomy, Joint Replacement, Tonsillectomy Additional Past Surgical History / Comment(s): CATARACTS, LT HIP REPLACEMENT, COLONOSCOPY/1 POLYP REMOVED(BENIGN), X4 EGD,S, HAD SURGURY ON "VALVE IN STOMACH " 1978 IN [place] Past Anesthesia/Blood Transfusion Reactions: No Reported Reaction Past Psychological History: No Psychological Hx Reported Additional Psychological History / Comment(s): Patient lives alone and has no family here.GETS NO OUT SIDE SERVICES BUT HIS NEIGHBORS HELP HIM OUT. Smoking Status: Former smoker Past Alcohol Use History: Occasional Additional Past Alcohol Use History / Comment(s): STARTED SMOKING A TEENAGER SMOKED FOR LESS THAN 1 YEAR THEN QUIT, STATES HAS A GLASS OF WINE A DAY AND OCC WILL GO OUT FOR A DRAFT BEER. Past Drug Use History: None Reported - Past Family History Father Family Medical History: Hypertension Additional Family Medical History / Comment(s): IN HIS LATE 30'S CEREBRAL HEMMORRAGE Mother Family Medical History: Dementia Additional Family Medical History / Comment(s): AGE 92 Medications and Allergies Home Medications Medication Instructions Recorded Confirmed Type Omeprazole [PriLOSEC] 20 mg PO HS 04/19/14 07/18/17 History Lisinopril-Hctz 20-25 mg 1 tab PO HS 07/18/15 07/18/17 History [Zestoretic 20-25] Allopurinol [Zyloprim] 300 mg PO HS 07/18/17 07/18/17 History Aspirin EC [Ecotrin Low Dose] 81 mg PO HS 07/18/17 07/18/17 History Simvastatin [Zocor] 10 mg PO HS 07/18/17 07/18/17 History amLODIPine [Norvasc] 2.5 mg PO HS 07/18/17 07/18/17 History Allergies Allergy/AdvReac Type Severity Reaction Status Date / Time Penicillins Allergy Rash/Hives Verified 07/18/17 09:08 Physical Exam Vitals: Vital Signs Temp Pulse Pulse Resp BP BP Pulse Ox 07/19/17 13:00 59 L 28 H 141/75 98 07/19/17 12:00 97.8 F 81 23 141/75 95 07/19/17 11:00 85 17 135/65 96 07/19/17 10:00 77 30 H 135/65 99 07/19/17 09:00 93 18 142/70 97 07/19/17 08:00 84 20 145/68 99 07/19/17 07:56 14 07/19/17 07:30 97.8 F 101 H 26 H 122/74 96 07/19/17 07:00 81 17 110/64 95 07/19/17 06:30 55 L 14 155/75 96 07/19/17 06:00 71 21 137/74 97 07/19/17 05:30 66 12 114/63 96 07/19/17 05:00 51 L 13 114/63 96 07/19/17 04:30 60 28 H 120/68 96 07/19/17 04:00 97.9 F 56 L 11 L 120/68 95 07/19/17 03:30 64 11 L 96 07/19/17 03:00 71 23 120/68 96 07/19/17 02:30 67 18 128/70 95 07/19/17 02:00 63 23 131/69 94 L 07/19/17 01:30 66 97 07/19/17 01:10 76 98 07/19/17 00:00 18 07/18/17 23:30 97.3 F L 86 18 117/84 97 07/18/17 20:00 97.5 F L 101 H 18 170/81 96 07/18/17 15:15 97.1 F L 73 16 172/78 97 07/18/17 14:30 96 18 142/84 98 07/18/17 14:15 97.1 F L 73 16 172/78 97 Intake and Output 07/18/17 07/19/17 07/19/17 22:59 06:59 14:59 Intake Total 260 Output Total 350 200 400 Balance -350 -200 -140 Intake: IV 60 Sodium Chloride 0.9% 1, 60 000 ml @ 20 mls/hr IV . Q24H [facility] Rx#:[id number] Intake, IV Titration 200 Amount Magnesium Sulfate-D5w Pmx 200 1 gm In Dextrose/Water 1 100ml.bag @ 100 mls/hr IVPB Q1H [facility] Rx#: [id number] Output: Urine 350 200 400 Other: Voiding Method Urinal Urinal # Voids 1 1 # Bowel Movements 1 1 Weight 65.9 kg GENERAL: This is a 87-year-old male in no apparent distress at the time of examination. Pleasant and cooperative. HEENT: Head is atraumatic, normocephalic. Pupils are equal, round, and reactive to light. Sclerae anicteric. Conjunctivae are clear. Mucus membranes of the mouth are moist. Neck is supple. RESPIRATORY: Clear to ausculation. No wheezes, rales, or rhonchi. No use of accessory muscles. Patient maintaining oxygen saturation greater than 92%. No chest wall tenderness is noted on palpation or with deep breathing. CARDIOVASCULAR: Regular rate and rhythm. S1 and S2 noted. Systolic murmur auscultated. No JVD noted. No S3 or S4 noted. GASTROINTESTINAL: No distention noted. Abdomen soft and round. Normal active bowel sounds auscultated x 4 quadrants. No pain or tenderness noted upon palpation. INTEGUMENTARY: No cyanosis. No jaundice. No rashes noted. No cellulitis noted. EXTREMITIES: 2+ peripheral pulses. No evidence of peripheral edema. No calf tenderness noted. NEUROLOGIC: Cranial nerves II-XII intact. PSYCHIATRIC: Awake, alert, and oriented X 3. Appropriate affect. Intact judgement and insight. Results CBC & Chem 7: 07/19/17 04:05 07/19/17 04:05 Labs: Abnormal Lab Results - Last 24 Hours (Table) 07/18/17 07/18/17 07/18/17 Range/Units 17:20 17:20 23:23 RBC (4.30-5.90) m/uL MCV 100.4 H (80.0-100.0) fL Lymphocytes # 0.8 L (1.0-4.8) k/uL BUN (9-20) mg/dL Creatinine (0.66-1.25) mg/dL Glucose (74-99) mg/dL Troponin I 0.355 H* 0.228 H* (0.000-0.034) ng/mL 07/18/17 07/19/17 07/19/17 Range/Units 23:23 04:05 04:05 RBC 4.23 L (4.30-5.90) m/uL MCV 101.4 H 100.3 H (80.0-100.0) fL Lymphocytes # (1.0-4.8) k/uL BUN (9-20) mg/dL Creatinine (0.66-1.25) mg/dL Glucose (74-99) mg/dL Troponin I 0.164 H* (0.000-0.034) ng/mL 07/19/17 Range/Units 04:05 RBC (4.30-5.90) m/uL MCV (80.0-100.0) fL Lymphocytes # (1.0-4.8) k/uL BUN 6 L (9-20) mg/dL Creatinine 0.60 L (0.66-1.25) mg/dL Glucose 110 H (74-99) mg/dL Troponin I (0.000-0.034) ng/mL Thrombosis Risk Factor Assmnt - Choose All That Apply Any of the Below Risk Factors Present?: No Each Risk Factor Represents 3 Points: Age 75 years or older Thrombosis Risk Factor Assessment Total Risk Factor Score: 3 Thrombosis Risk Factor Assessment Level: Moderate Risk Assessment and Plan Plan: ASSESSMENT: Acute lower gastrointestinal bleeding with bright red blood per rectum, present on admission Non-ST elevated myocardial infarction, troponins 0.040, 0.382, 0.355, and 0.228 , EKG with nonspecific ST-T wave changes, 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 Appreciate recommendations and input -Patient may transfer to selective care unit or general medical floor -Cardiology on consult. Appreciate recommendations and input -Aspirin and amlodipine discontinued per cardiology -Patient started on metoprolol and Imdur per cardiology -GI on consult. Appreciate recommendations and input -Patient to undergo colonoscopy tomorrow 07/20/2017 -Clear liquid diet. Nothing by mouth after midnight -Home meds as appropriate -Monitor labs -GI prophylaxis: Protonix 40 mg IV twice a day -DVT prophylaxis: Venodyne's to bilateral lower extremities -Monitor vital signs and address as appropriate -Discharge planning: Patient to return home. Patient declining home care at this time. -Further recommendations pending patient's course Nurse practitioner note has been reviewed by physician. Signing provider agrees with the documented findings, assessment, and plan of care. <Oziel Duckworth Jr - Last Filed: 07/19/17 16:31> Physical Exam Osteopathic Statement: *. No significant issues noted on an osteopathic structural exam other than those noted in the History and Physical/Consult. Vitals: Vital Signs Temp Pulse Pulse Resp BP BP Pulse Ox 07/19/17 15:00 65 29 H 107/57 96 07/19/17 14:00 55 L 20 97 07/19/17 13:00 59 L 28 H 141/75 98 07/19/17 12:00 97.8 F 81 23 141/75 95 07/19/17 11:00 85 17 135/65 96 07/19/17 10:00 77 30 H 135/65 99 07/19/17 09:00 93 18 142/70 97 07/19/17 08:00 84 20 145/68 99 07/19/17 07:56 14 07/19/17 07:30 97.8 F 101 H 26 H 122/74 96 07/19/17 07:00 81 17 110/64 95 07/19/17 06:30 55 L 14 155/75 96 07/19/17 06:00 71 21 137/74 97 07/19/17 05:30 66 12 114/63 96 07/19/17 05:00 51 L 13 114/63 96 07/19/17 04:30 60 28 H 120/68 96 07/19/17 04:00 97.9 F 56 L 11 L 120/68 95 07/19/17 03:30 64 11 L 96 07/19/17 03:00 71 23 120/68 96 07/19/17 02:30 67 18 128/70 95 07/19/17 02:00 63 23 131/69 94 L 07/19/17 01:30 66 97 07/19/17 01:10 76 98 07/19/17 00:00 18 07/18/17 23:30 97.3 F L 86 18 117/84 97 07/18/17 20:00 97.5 F L 101 H 18 170/81 96 Intake and Output 07/19/17 07/19/17 07/19/17 06:59 14:59 22:59 Intake Total 280 20 Output Total 200 400 250 Balance -200 -120 -230 Intake: IV 80 20 Sodium Chloride 0.9% 1, 80 20 000 ml @ 20 mls/hr IV . Q24H [facility] Rx#:[id number] Intake, IV Titration 200 Amount Magnesium Sulfate-D5w Pmx 200 1 gm In Dextrose/Water 1 100ml.bag @ 100 mls/hr IVPB Q1H [facility] Rx#: [id number] Output: Urine 200 400 250 Other: Voiding Method Urinal Urinal # Voids 1 # Bowel Movements 1 Weight 65.9 kg Results CBC & Chem 7: 07/19/17 04:05 07/19/17 04:05 Labs: Abnormal Lab Results - Last 24 Hours (Table) 07/18/17 07/18/17 07/18/17 Range/Units 17:20 17:20 23:23 RBC (4.30-5.90) m/uL MCV 100.4 H (80.0-100.0) fL Lymphocytes # 0.8 L (1.0-4.8) k/uL BUN (9-20) mg/dL Creatinine (0.66-1.25) mg/dL Glucose (74-99) mg/dL Troponin I 0.355 H* 0.228 H* (0.000-0.034) ng/mL 07/18/17 07/19/17 07/19/17 Range/Units 23:23 04:05 04:05 RBC 4.23 L (4.30-5.90) m/uL MCV 101.4 H 100.3 H (80.0-100.0) fL Lymphocytes # (1.0-4.8) k/uL BUN (9-20) mg/dL Creatinine (0.66-1.25) mg/dL Glucose (74-99) mg/dL Troponin I 0.164 H* (0.000-0.034) ng/mL 07/19/17 Range/Units 04:05 RBC (4.30-5.90) m/uL MCV (80.0-100.0) fL Lymphocytes # (1.0-4.8) k/uL BUN 6 L (9-20) mg/dL Creatinine 0.60 L (0.66-1.25) mg/dL Glucose 110 H (74-99) mg/dL Troponin I (0.000-0.034) ng/mL
[2017-07-19] MEDS ORDERED: PEG 3350-NA SULF,BICARB,CL/KCL 4,000 ML BOTTLE PO ONE (16:00)
[2017-07-19] MEDS: SODIUM CHLORIDE 0.9% 1,000 ML IV SCH (17:07)
--- NOTE | 2017-07-19 18:41 | CONS ---
CONSULTATION DATE OF CONSULTATION: 07/19/17 REQUESTING PHYSICIAN: Dr. Thornton. REASON FOR CONSULTATION: Acute lower GI bleed. HISTORY OF PRESENT ILLNESS: The patient is an 87 -year-old pleasant white male who was admitted to the hospital with acute lower GI bleed. He had multiple episodes of bright red blood per rectum and yesterday while he was on Selective, he had a large amount of bright red blood per rectum and was transferred to the intensive care unit. However, since being in the ICU he did not have any further bleeding and his hemoglobin remained stable. He denies any abdominal pain. Reports no nausea, vomiting. His last colonoscopy was about 10 years ago and was noted to have a small polyp. PAST MEDICAL HISTORY: Significant for hypertension, hypercholesteremia, GERD, gout. ALLERGIES: To PENICILLIN. PAST SURGICAL HISTORY: Adenoidectomy, appendectomy, tonsillectomy. Colonoscopy in the past. FAMILY HISTORY: Father had hypertension. Mother had dementia. MEDICATIONS AT HOME: Prilosec, Zestoretic, Zyloprim, Ecotrin, Zocor, Norvasc. SOCIAL HISTORY: No smoking or alcohol use. Family history as mentioned above. REVIEW OF SYSTEMS: Cardiopulmonary: Denies any chest pain, shortness of breath. : No dysuria or hematuria. Musculoskeletal: Unremarkable. Skin: Unremarkable. Endocrine: Unremarkable. Psychiatric: Unremarkable. Hematology: Unremarkable. Immunology: Unremarkable. HEENT/Vision: Unremarkable. Constitutional: No recent weight loss. No fever, chills, night sweats. PHYSICAL EXAMINATION: He appears comfortable. No apparent distress. VITAL SIGNS: Stable. Blood pressure is 135/65, pulse rate 77. Afebrile. HEENT examination unremarkable. Conjunctivae pink. Sclerae anicteric. Oral cavity no lesions. Neck: No jugular venous distention or lymph node enlargement. Chest clear to auscultation. HEART: Regular rate and rhythm. ABDOMEN: Soft. Bowel sounds are positive. No organomegaly. Extremities: No pedal edema. Skin no rashes. NEUROLOGIC: Alert and oriented x3. No focal deficits. LABS: WBC 6.2, hemoglobin 14. Lytes are normal. Basic metabolic panel is within normal limits. Troponin was 0.3. IMPRESSION: 1. Acute lower gastrointestinal bleed, possibly diverticular in nature but other etiology cannot be excluded. The patient is presently hemodynamically stable. He had some episodes of bright red blood per rectum at home and in the hospital and hence was transferred to the intensive care unit. Since being here, he is hemodynamically stable and no further bleeding. 2. Slight increase in troponin for which cardiology is following the patient closely. No plans on any cardiac intervention at the present time. RECOMMENDATIONS: I had a lengthy discussion with the patient regarding further workup of rectal bleeding. I gave him an option of colonoscopy versus conservative management. He elected to proceed with colonoscopy. I discussed with him risks, benefits, and complications and he is agreeable to it. We will plan on this procedure for tomorrow. Thank you for this consultation. MMODL / IJN: [id number] /
[2017-07-19] MEDS: ALLOPURINOL 300 MG TAB PO SCH (21:45)
[2017-07-19] MEDS: LISINOPRIL-HCTZ 20-25 MG 1 EACH TAB PO SCH (21:45)
[2017-07-19] MEDS: ATORVASTATIN 20 MG TAB PO SCH (21:45)
[2017-07-20 04:39] LABS: Basophils % (A) 1 %; Eosinophils # (A) 0.1 k/uL (0-0.7); Eosinophils % (A) 2 %; HCT 40.7 % (39.0-53.0); HGB 13.4 gm/dL (13.0-17.5); Lymphocytes % (A) 13 %; MCH 32.6 pg (25.0-35.0); MCV 98.8 fL (80.0-100.0); Mean Platelet Volume 7.7; Monocytes # (A) 0.5 k/uL (0-1.0); Monocytes % (A) 7 %; Neutrophils # (A) 5.5 k/uL (1.3-7.7); Neutrophils % (A) 75 %; Platelet Count 163 k/uL (150-450); RBC 4.12 m/uL (4.30-5.90); RDW 14.7 % (11.5-15.5); WBC 7.4 k/uL (3.8-10.6)
[2017-07-20] MEDS ORDERED: PEG 3350-NA SULF,BICARB,CL/KCL 4,000 ML BOTTLE PO ONE (05:08)
[2017-07-20 05:20] LABS: Anion Gap 10 mmol/L; Blood Urea Nitrogen 6 mg/dL (9-20); Calcium 9.3 mg/dL (8.4-10.2); Carbon Dioxide 26 mmol/L (22-30); Chloride 101 mmol/L (98-107); Glucose 106 mg/dL (74-99); Magnesium 1.7 mg/dL (1.6-2.3); Phosphorus 2.8 mg/dL (2.5-4.5); Potassium 4.1 mmol/L (3.5-5.1); Sodium 137 mmol/L (137-145)
[2017-07-20] MEDS ORDERED: ePHEDrine SULFATE/0.9% NACL/PF 50 MG/5 ML SYRINGE IV ONE (07:43)
[2017-07-20] MEDS ORDERED: PROPOFOL 10 MG/ML 20 ML VIAL IV ONE (07:43)
[2017-07-20] MEDS ORDERED: LACTATED RINGERS 1,000 ML IV ONE (07:49)
--- NOTE | 2017-07-20 07:57 | P.PN ---
Subjective Progress Note Date: 07/20/17 Principal diagnosis: GI bleed Progress note dated 07/20/2017 This is a 87-year-old male seen yesterday in consultation. He came in with a GI bleed with bright red blood per rectum. His primary physician is Dr. Thornton. He presented to the emergency department on July 18 at 7 in the morning with complaints of bright red blood per rectum. The patient this morning went for a colonoscopy and that will be leaving the unit to go to 678 bed 1. The patient has been very very stable. The patient did not require any pressor. The patient did not require any blood transfusion. In addition, he has a history of hypertension hyperlipidemia gastroesophageal reflux disease osteoarthritis and a previous colonoscopy some 10 years ago with polypectomy. Again the patient's very very stable. This patient never had any respiratory or hemodynamic issues. Objective - Vital Signs Vital signs: Vital Signs Temp 97.5 F L 07/20/17 07:43 Pulse 86 07/20/17 07:43 Resp 19 07/20/17 07:43 BP 117/84 07/20/17 07:43 Pulse Ox 98 07/20/17 07:43 Intake & Output 07/19/17 07/20/17 07/20/17 18:59 06:59 18:59 Intake Total 330 1010 Output Total 750 857 Balance -420 153 Intake: IV 130 10 Sodium Chloride 0.9% 1, 130 10 000 ml @ 20 mls/hr IV . Q24H [facility] Rx#:[id number] Intake, IV Titration 200 Amount Magnesium Sulfate-D5w Pmx 200 1 gm In Dextrose/Water 1 100ml.bag @ 100 mls/hr IVPB Q1H [facility] Rx#: [id number] Oral 1000 Output: Urine 750 850 Stool 7 Other: Voiding Method Urinal Urinal # Voids 1 - Exam No acute distress, oriented 3. HEENT examination is grossly unremarkable. Mucous membranes are moist. No oral lesions. Neck supple. Full range of motion. No adenopathy thyromegaly or neck vein distention. Cardiovascular examination reveals regular rhythm rate. S1-S2 normal. No S3 or S4. No discernible murmur noted. Lungs reveal clear breath sounds. Her sounds are equal bilaterally. No adventitious lung sounds including wheezes rhonchi or crackles. Abdomen soft bowel sounds are heard. No masses or tenderness. Extremities are intact. No cyanosis clubbing or edema. Skin is without rash or lesion. Neurologic examination is brief but nonfocal. - Labs CBC & Chem 7: 07/20/17 04:03 07/20/17 04:03 Labs: Abnormal Lab Results - Last 24 Hours (Table) 07/20/17 07/20/17 Range/Units 04:03 04:03 RBC 4.12 L (4.30-5.90) m/uL BUN 6 L (9-20) mg/dL Creatinine 0.65 L (0.66-1.25) mg/dL Glucose 106 H (74-99) mg/dL Assessment and Plan (1) Gastroesophageal reflux disease Current Visit: Yes Status: Acute Code(s): K21.9 - GASTRO-ESOPHAGEAL REFLUX DISEASE WITHOUT ESOPHAGITIS SNOMED Code(s): 230966882 (2) Lower GI bleed Current Visit: Yes Status: Acute Code(s): K92.2 - GASTROINTESTINAL HEMORRHAGE, UNSPECIFIED SNOMED Code(s): 96890683 (3) Non-ST elevation myocardial infarction (NSTEMI) Current Visit: Yes Status: Acute Code(s): I21.4 - NON-ST ELEVATION (NSTEMI) MYOCARDIAL INFARCTION SNOMED Code(s): 997774214 (4) Gout Current Visit: No Status: Chronic Code(s): M10.9 - GOUT, UNSPECIFIED SNOMED Code(s): 43591416 (5) Hyperlipemia Current Visit: No Status: Chronic Code(s): E78.5 - HYPERLIPIDEMIA, UNSPECIFIED SNOMED Code(s): 60923232 (6) Hypertension Current Visit: No Status: Chronic Code(s): I10 - ESSENTIAL (PRIMARY) HYPERTENSION SNOMED Code(s): 43335744 Plan: The patient appears to be relatively stable. He is going for a colonoscopy today. After the colonoscopy, he'll be admitted to the floor at 678.1. I'm not sure why he's even going there and probably could go to the general medical floor. Respiratory status is stable. Hemodynamic status has always been stable. Labs x-rays a medications are all reviewed. Time with Patient: Greater than 30
--- NOTE | 2017-07-20 08:06 | P.PCN ---
Date of Procedure: 07/20/17 Procedure(s) Performed: BRIEF HISTORY: Patient is a 87-year-old pleasant white male, admitted hospital with acute lower GI bleed. He had multiple episodes of bright red blood per rectum and was admitted to the intensive care unit. Hemoglobin remained stable at 13 g/dL. He scheduled for colonoscopy to evaluate further. PROCEDURE PERFORMED: Colonoscopy with biopsy. PREOPERATIVE DIAGNOSIS: Acute lower GI bleed]. IV sedation per Anesthesia. PROCEDURE: After informed consent was obtained, the patient, was brought into the endoscopy unit. IV sedation was administered by Anesthesia under continuous monitoring. Digital rectal examination was normal. Initially the Olympus CF- 160 flexible video colonoscope was then inserted in the rectum, gradually advanced into the cecum without any difficulty. Careful examination was performed as the scope was gradually being withdrawn. Ileocecal valve and the appendiceal orifice were visualized and appeared normal. Prep was excellent. Mucosa of the cecum, ascending colon, transverse colon, descending colon, appeared normal. In the sigmoid colon there were scattered diverticulosis seen. In the distal rectum on retroflexion there was a 3 cm ulcerated mass identified involving the dentate line and multiple biopsies were done from this area. The patient tolerated the procedure well. IMPRESSION: 3 cm ulcerated distal rectal mass involving the dentate line status post multiple biopsies Scattered sigmoidal diverticulosis RECOMMENDATIONS: Findings of this examination were discussed with the patient. At this time will await the biopsy results and consult oncology..
[2017-07-20] MEDS: METOPROLOL TARTRATE 25 MG TAB PO SCH ×2 (09:13→20:44)
[2017-07-20] MEDS: ISOSORBIDE MONONITRATE ER 30 MG TAB.ER.24H PO SCH (09:14)
[2017-07-20] MEDS: PANTOPRAZOLE 40 MG/10 ML VIAL IV SCH ×2 (09:49→21:19)
--- NOTE | 2017-07-20 10:32 | P.PN ---
Subjective Progress Note Date: 07/20/17 87-year-old male presented to the emergency room on 07/18/2017 with a chief complaint of bright red blood per rectum. The patient noted that he had a small amount of bleeding per rectum about a week ago and today he had a another episode of blood which was larger and quantity then the previous episode. The patient has a history of gastroesophageal reflux disease, hyperlipidemia, hypertension, osteoarthritis, vertigo, and gout. He states he has had a colonoscopy in the past with one polyp removed which was benign. He is a former cigarette smoker. In the emergency room, an abdominal x-ray was completed which was negative for acute process. EKG revealed sinus rhythm with first-degree AV block, PVCs, and nonspecific ST-T wave changes. Laboratory studies reveal white count 5.6, hemoglobin 15.3, platelet count 175, INR 1.3, sodium 138, potassium 3.6, BUN of 8, creatinine 0.65, and magnesium 1.6. Troponins were 0.040, 0.382, 0.355, and 0.228. The patient did report that he had mild chest discomfort approximately one week ago when he was shoveling snow but it subsided upon rest. The patient states this is chronic for him and was similiar to previous episodes he has had. Stool for occult blood was positive. He was admitted to the hospital under the care of Dr. Duckworth. Consultations were placed to pulmonology, cardiology, and gastroenterology. An echocardiogram was completed which revealed ejection fraction of 45-50%, mild aortic regurgitation, moderate aortic stenosis, mild mitral regurgitation, and mild tricuspid regurgitation. He was evaluated by dispatch coordinator who discontinued his aspirin and amlodipine and started him on metoprolol and Imdur. The patient was found to not be a candidate for aggressive cardiac workup at this time and will continue with medical management per cardiology. 07/20/2017 The patient was seen and examined at the bedside in the intensive care unit. He is awake and alert. Oriented x 3. Denies chest pain or pressure. Denies shortness of breath. Denies further episodes of rectal bleeding. He denies pain or discomfort. He is tolerating clear liquid diet. Denies nausea or vomiting. Vital signs remain stable. Hemoglobin is stable at 14.0 07/21/2017 Patient seen and examined at the bedside on rounds with Dr. Duckworth. Patient underwent colonoscopy today revealing 3cm ulcerated distal rectal mass and sigmoid diverticulosis. Oncology consult was ordered per GI. He denies shortness of breath. Denies chest pain or pressure. Vital signs remain stable. Hemoglobin is stable at 13.4. He has been started on a regular diet. Denies nausea or vomiting. Denies further episodes of rectal bleeding. Objective - Vital Signs Vital signs: Vital Signs Temp 97.5 F L 07/20/17 07:43 Pulse 71 07/20/17 09:10 Resp 18 07/20/17 09:10 BP 153/70 07/20/17 09:25 Pulse Ox 99 07/20/17 09:10 Intake & Output 07/19/17 07/20/17 07/20/17 18:59 06:59 18:59 Intake Total 330 1010 420 Output Total 750 857 Balance -420 153 420 Weight 65.8 kg Intake: IV 130 10 420 0.9 flush\ 20 Sodium Chloride 0.9% 1, 130 10 000 ml @ 20 mls/hr IV . Q24H [facility] Rx#:[id number] Intake, IV Titration 200 Amount Magnesium Sulfate-D5w Pmx 200 1 gm In Dextrose/Water 1 100ml.bag @ 100 mls/hr IVPB Q1H [facility] Rx#: [id number] Oral 1000 Output: Urine 750 850 Stool 7 Other: Voiding Method Urinal Urinal # Voids 1 - Exam GENERAL: This is a 87-year-old male in no apparent distress at the time of examination. Pleasant and cooperative. HEENT: Head is atraumatic, normocephalic. Pupils are equal, round, and reactive to light. Sclerae anicteric. Conjunctivae are clear. Mucus membranes of the mouth are moist. Neck is supple. RESPIRATORY: Clear to ausculation. No wheezes, rales, or rhonchi. No use of accessory muscles. Patient maintaining oxygen saturation greater than 92%. No chest wall tenderness is noted on palpation or with deep breathing. CARDIOVASCULAR: Regular rate and rhythm. S1 and S2 noted. Systolic murmur auscultated. No JVD noted. No S3 or S4 noted. GASTROINTESTINAL: No distention noted. Abdomen soft and round. Normal active bowel sounds auscultated x 4 quadrants. No pain or tenderness noted upon palpation. INTEGUMENTARY: No cyanosis. No jaundice. No rashes noted. No cellulitis noted. EXTREMITIES: 2+ peripheral pulses. No evidence of peripheral edema. No calf tenderness noted. NEUROLOGIC: Cranial nerves II-XII intact. PSYCHIATRIC: Awake, alert, and oriented X 3. Appropriate affect. Intact judgement and insight. - Labs CBC & Chem 7: 07/20/17 04:03 07/20/17 04:03 Labs: Abnormal Lab Results - Last 24 Hours (Table) 07/20/17 07/20/17 Range/Units 04:03 04:03 RBC 4.12 L (4.30-5.90) m/uL BUN 6 L (9-20) mg/dL Creatinine 0.65 L (0.66-1.25) mg/dL Glucose 106 H (74-99) mg/dL Assessment and Plan Plan: ASSESSMENT: Acute lower gastrointestinal bleeding with bright red blood per rectum, present on admission, s/p colonoscopy revealing 3cm ulcerated distal rectal mass and sigmoid diverticulosis Non-ST elevated myocardial infarction, troponins 0.040, 0.382, 0.355, and 0.228 , EKG with nonspecific ST-T wave changes, possible chronic stable angina pectoris per cardiology Essential hypertension Hyperlipidemia Gastroesophageal reflux disease Osteoarthritis Remote history of nicotine dependence PLAN: -Will consult general surgery, Dr. Rasmussen -Patient may transfer to oncology floor -Cardiology on consult. Appreciate recommendations and input -Aspirin and amlodipine discontinued per cardiology -Patient started on metoprolol and Imdur per cardiology -GI on consult. Appreciate recommendations and input -Oncology consulted per GI service -Regular diet -Home meds as appropriate -Monitor labs -GI prophylaxis: Protonix 40 mg IV twice a day -DVT prophylaxis: Venodyne's to bilateral lower extremities -Monitor vital signs and address as appropriate -Discharge planning: Patient to return home. Patient declining home care at this time. -Further recommendations pending patient's course Nurse practitioner note has been reviewed by physician. Signing provider agrees with the documented findings, assessment, and plan of care.
[2017-07-20] MEDS: LACTATED RINGERS 1,000 ML IV SCH (12:32)
--- NOTE | 2017-07-20 13:06 | PN ---
PROGRESS NOTE Mr. Pabon is an 87-year-old male who presented with evidence of GI bleeding. He underwent colonoscopy today and was found to have an ulcerated mass in the distal rectum. He is feeling well otherwise. He denies any symptoms of chest pain. His breathing has been stable. He denies any dizziness or palpitation. He denies any nausea or vomiting. He continues to be at this time on Lipitor 20 mg daily, isosorbide mononitrate 30 mg daily, lisinopril HCT 20-25 mg daily, metoprolol tartrate 25 mg twice a day. PHYSICAL EXAMINATION: Blood pressure 129/60 with the heart rate in the 60s. LUNGS: Clear. HEART: Regular rate and rhythm, S1, S2. No S3 with systolic murmur, ejection type, mid- peaking. No diastolic murmur. ABDOMEN: Soft, nontender. EXTREMITIES: No edema. LAB DATA: Lab data revealed BUN and creatinine 6 and 0.6. Hemoglobin of 13.4. Echocardiogram revealed a ejection fraction reported at 45% to 50% with moderate aortic stenosis and mild aortic regurgitation. IMPRESSION: 1. Evidence of gastrointestinal bleeding with ulcerated rectal mass, probably malignancy. 2. Probable non ST-segment elevation myocardial infarction. 3. Moderate aortic stenosis. 4. History of hypertension. 5. History of hyperlipidemia. RECOMMENDATION: From the cardiac standpoint, would continue present therapy. I will continue on the beta ainsley as started. We will await the input of the oncology service. AVIS / NELSON: [id number] /
--- NOTE | 2017-07-20 13:27 | P.GSCN ---
History of Present Illness Consult date: 07/20/17 Reason for Consult: Rectal Mass History of present illness: This is a 87-year-old male who presented to the hospital with GI bleed.He states he had a colonoscopy many years ago had a couple polyps removed he has had no bleeding since no issues since that he knows of. His history of an appendectomy and craniotomy secondary to a subdural hematoma. During this admission he underwent a colonoscopy and was found to have a 3 cm ulcerated bleeding rectal mass at the dentate line. Currently he is not actively bleeding. His hemoglobin is stabilized. 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, LEAKY HEART VALVE History of Any Multi-Drug Resistant Organisms: None Reported Past Surgical History: Adenoidectomy, Appendectomy, Joint Replacement, Tonsillectomy Additional Past Surgical History / Comment(s): CATARACTS, LT HIP REPLACEMENT, COLONOSCOPY/1 POLYP REMOVED(BENIGN), X4 EGD,S, HAD SURGURY ON "VALVE IN STOMACH " 1978 IN [place] Past Anesthesia/Blood Transfusion Reactions: No Reported Reaction Past Psychological History: No Psychological Hx Reported Additional Psychological History / Comment(s): Patient lives alone and has no family here.GETS NO OUT SIDE SERVICES BUT HIS NEIGHBORS HELP HIM OUT. Smoking Status: Former smoker Past Alcohol Use History: Occasional Additional Past Alcohol Use History / Comment(s): STARTED SMOKING A TEENAGER SMOKED FOR LESS THAN 1 YEAR THEN QUIT, STATES HAS A GLASS OF WINE A DAY AND OCC WILL GO OUT FOR A DRAFT BEER. Past Drug Use History: None Reported - Past Family History Father Family Medical History: Hypertension Additional Family Medical History / Comment(s): IN HIS LATE 30'S CEREBRAL HEMMORRAGE Mother Family Medical History: Dementia Additional Family Medical History / Comment(s): AGE 92 Medications and Allergies Home Medications Medication Instructions Recorded Confirmed Type Omeprazole [PriLOSEC] 20 mg PO HS 04/19/14 07/18/17 History Lisinopril-Hctz 20-25 mg 1 tab PO HS 07/18/15 07/18/17 History [Zestoretic 20-25] Allopurinol [Zyloprim] 300 mg PO HS 07/18/17 07/18/17 History Aspirin EC [Ecotrin Low Dose] 81 mg PO HS 07/18/17 07/18/17 History Simvastatin [Zocor] 10 mg PO HS 07/18/17 07/18/17 History amLODIPine [Norvasc] 2.5 mg PO HS 07/18/17 07/18/17 History Allergies Allergy/AdvReac Type Severity Reaction Status Date / Time Penicillins Allergy Rash/Hives Verified 07/18/17 09:08 Surgical - Exam Osteopathic Statement: *. No significant issues noted on an osteopathic structural exam other than those noted in the History and Physical/Consult. Vital Signs Temp Pulse Resp BP Pulse Ox 97.6 F 86 20 122/84 99 07/18/17 07:53 07/18/17 07:53 07/18/17 07:53 07/18/17 07:53 07/18/17 07:53 - General well developed, well nourished, no distress - Eyes PERRL, normal ocular movement - ENT normal pinna, normal nares, normal mucosa - Neck no masses, trachea midline - Respiratory normal expansion, normal respiratory effort - Cardiovascular Rhythm: regular - Abdomen Abdomen: soft, non tender - Rectum There is a rectal mass palpated at the dentate line. No active bleeding noted. Rectum: normal sphincter tone, mass - Neurologic normal coordination, normal sensation - Musculoskeletal normal gait - Psychiatric oriented to time, oriented to person, oriented to place Results - Labs 07/20/17 04:03 07/20/17 04:03 Abnormal Lab Results - Last 24 Hours (Table) 07/20/17 07/20/17 Range/Units 04:03 04:03 RBC 4.12 L (4.30-5.90) m/uL BUN 6 L (9-20) mg/dL Creatinine 0.65 L (0.66-1.25) mg/dL Glucose 106 H (74-99) mg/dL Diabetes panel 07/20/17 Range/Units 04:03 Sodium 137 (137-145) mmol/L Potassium 4.1 (3.5-5.1) mmol/L Chloride 101 (98-107) mmol/L Carbon Dioxide 26 (22-30) mmol/L BUN 6 L (9-20) mg/dL Creatinine 0.65 L (0.66-1.25) mg/dL Glucose 106 H (74-99) mg/dL Calcium 9.3 (8.4-10.2) mg/dL Calcium panel 07/20/17 Range/Units 04:03 Calcium 9.3 (8.4-10.2) mg/dL Phosphorus 2.8 (2.5-4.5) mg/dL Pituitary panel 07/20/17 Range/Units 04:03 Sodium 137 (137-145) mmol/L Potassium 4.1 (3.5-5.1) mmol/L Chloride 101 (98-107) mmol/L Carbon Dioxide 26 (22-30) mmol/L BUN 6 L (9-20) mg/dL Creatinine 0.65 L (0.66-1.25) mg/dL Glucose 106 H (74-99) mg/dL Calcium 9.3 (8.4-10.2) mg/dL Adrenal panel 07/20/17 Range/Units 04:03 Sodium 137 (137-145) mmol/L Potassium 4.1 (3.5-5.1) mmol/L Chloride 101 (98-107) mmol/L Carbon Dioxide 26 (22-30) mmol/L BUN 6 L (9-20) mg/dL Creatinine 0.65 L (0.66-1.25) mg/dL Glucose 106 H (74-99) mg/dL Calcium 9.3 (8.4-10.2) mg/dL Assessment and Plan Assessment: Ulcerated distal rectal mass Plan: Patient has multiple medical comorbidities. After lengthy discussion with the patient he stated that he would not want a major surgery at this time. We'll have a discussion with the medical team regarding surgical options. He may be a good candidate for a transanal excision for palliative measures secondary to the ulcerated bleeding mass. If he is not actively bleeding this could even be done as an outpatient. Further recommendations to follow
[2017-07-20] MEDS: SODIUM CHLORIDE 0.9% 1,000 ML IV SCH (15:24)
[2017-07-20] MEDS: ATORVASTATIN 20 MG TAB PO SCH (20:44)
[2017-07-20] MEDS: ALLOPURINOL 300 MG TAB PO SCH (21:19)
[2017-07-20] MEDS: LISINOPRIL-HCTZ 20-25 MG 1 EACH TAB PO SCH (21:19)
[2017-07-21] MEDS: LACTATED RINGERS 1,000 ML IV SCH (06:50)
[2017-07-21] MEDS: PANTOPRAZOLE 40 MG/10 ML VIAL IV SCH (08:25)
[2017-07-21] MEDS: ISOSORBIDE MONONITRATE ER 30 MG TAB.ER.24H PO SCH (08:25)
[2017-07-21] MEDS: METOPROLOL TARTRATE 25 MG TAB PO SCH (08:25)
[2017-07-21] MEDS ORDERED: RX INFO: IV CONTRAST WAS GIVEN 1 EACH MISC MISCELLANE PRN (09:31)
[2017-07-21 11:12] VITALS: RESP 16; TEMP 97.6
[2017-07-21] MEDS: IOHEXOL 350 MG/ML 25 ML BOTTLE (ORAL USE) PO PRN ×2 (11:46→12:33)
--- NOTE | 2017-07-21 12:02 | P.PN ---
Subjective Progress Note Date: 07/21/17 Principal diagnosis: Ulcerated distal rectal massKranthi Soto is a 87-year-old white male patient follows with Dr. Thornton, resented to the emergency department on 07/18/2017 at 7:00 in the morning with complaints of bright red blood per rectum. Prior to that he did have small amount of rectal bleeding a week ago. No previous history of GI bleeding. He is on the low-dose aspirin 81 mg by mouth daily, no other blood thinners. Denied any shortness of breath, lightheadedness or dizziness. Denied not any chest pain. Past medical history is positive for hypertension, hyperlipidemia, GERD/reflux, osteoarthritis, has had a colonoscopy with a polyp removed over 10 years ago, has had 2 prior EGDs for his symptoms of gastroesophageal reflux. Patient is an ex-smoker, no significant history of EtOH, only a social drinker occasionally. Abdominal x-ray showed no acute intra-abdominal abnormality. Lab work showed normal white count of 5.6, hemoglobin of 15.3 on admission, INR is 1.3, no electrolyte abnormality, BUN of 8, and creatinine 0.65. Liver enzymes were within normal. Patient did have a mild troponin leak, with the highest one on admission at 0.040. Stool occult was positive. Initial twelve- lead EKG on 12/16/2017 showed sinus rhythm with first-degree AV block and occasional PVCs, nonspecific ST-T wave changes. Cardiology has been consulted. Patient had one episode of bloody bowel movement last night, but nothing since then, remains on room air, and his vital signs are stable. Hemoglobin remained stable at 14.4 on today's lab work. Has not required any blood transfusions. The patient is seen again today 07/21/2017 in follow-up on the selective care unit. He is awake and alert in no acute distress. No pulmonary complaints at all. He has not had any further GI bleeding. He has been evaluated by surgical services regarding the ulcerated distal rectal mass. The patient had declined any major surgery. He may have palliative trans-anal excision for palliative treatment in the out patient basis. His hemoglobin is 13.4. Objective - Vital Signs Vital signs: Vital Signs Temp 97.6 F 07/21/17 08:00 Pulse 72 07/21/17 08:00 Resp 16 07/21/17 08:00 BP 132/68 07/21/17 08:00 Pulse Ox 97 01/17/18 08:00 Intake & Output 07/20/17 07/21/17 07/21/17 18:59 06:59 18:59 Intake Total 893 240 Balance 893 240 Weight 64.5 kg Intake: IV 420 0.9 flush\ 20 Oral 473 240 Other: Voiding Method Urinal # Voids 1 1 - Exam GENERAL EXAM: Alert, active, comfortable in no apparent distress. HEAD: Normocephalic. EYES: Normal reaction of pupils, equal size. NOSE: Clear with pink turbinates. THROAT: No erythema or exudates. NECK: No masses, no JVD. CHEST: No chest wall deformity. LUNGS: Equal air entry with no crackles, wheeze, rhonchi or dullness. CVS: S1 and S2 normal with no audible murmur, regular rhythm. ABDOMEN: No hepatosplenomegaly, normal bowel sounds, no guarding or rigidity. SPINE: No scoliosis or deformity SKIN: No rashes CENTRAL NERVOUS SYSTEM: No focal deficits, tone is normal in all 4 extremities. EXTREMITIES: There is no peripheral edema. No clubbing, no cyanosis. Peripheral pulses are intact. - Labs CBC & Chem 7: 07/20/17 04:03 07/20/17 04:03 Assessment and Plan Assessment: Assessment: #1. Acute lower GI bleeding with bright red blood per rectum contrary to a ulcerated distal rectal mass. Pathology pending. #2. Non-ST elevated [place], there is a troponin leak, troponin topped out at 0.040 , nonspecific ST-T changes in the anterior leads, urology following #3. History of colonoscopy would removal of a polyp, over 10 years ago #4. History of GERD, with 2 prior EGDs #5. Hypertension #6. Hyperlipidemia #7. Osteoarthritis Plan: The patient was seen and evaluated by Dr. Ansari. He is stable from the pulmonary and critical care standpoint. We will follow the patient on as- needed basis. I, the cosigning physician, performed a history & physical examination of the patient. Lungs sounds are clear. Maintaining good O2 saturations in the 90s on room air. I discussed the assessment and plan of care with my nurse practitioner, Estella Myers. I attest to the above note as dictated by her.
[2017-07-21 13:16] VITALS: BP 120/78; PULSE 61
--- NOTE | 2017-07-21 14:37 | P.DS ---
Providers Date of admission: 07/18/17 13:52 Expected date of discharge: 07/21/17 Attending physician: Delroy Thornton Consults: 07/18/17 13:53 Consult Physician Urgent Consulting Provider: Darshan Casillas Consult Reason/Comments: Elevated troponin Do you want consulting provider notified?: Already Contacted 07/19/17 00:34 Consult Physician Routine Consulting Provider: Roberto Carlos Beal Consult Reason/Comments: Acute GI Bleed Do you want consulting provider notified?: Yes 07/20/17 08:24 Consult Physician Routine Consulting Provider: Thanh Becerril Consult Reason/Comments: rectal mass Do you want consulting provider notified?: Yes 07/20/17 09:49 Consult Physician Routine Consulting Provider: Joseph Rasmussen Consult Reason/Comments: rectal mass Do you want consulting provider notified?: Yes Primary care physician: Delroy [facility] Course: 87-year-old male presented to the emergency room on 07/18/2017 with a chief complaint of bright red blood per rectum. The patient noted that he had a small amount of bleeding per rectum about a week ago and today he had a another episode of blood which was larger and quantity then the previous episode. The patient has a history of gastroesophageal reflux disease, hyperlipidemia, hypertension, osteoarthritis, vertigo, and gout. He states he has had a colonoscopy in the past with one polyp removed which was benign. He is a former cigarette smoker. In the emergency room, an abdominal x-ray was completed which was negative for acute process. EKG revealed sinus rhythm with first-degree AV block, PVCs, and nonspecific ST-T wave changes. Laboratory studies reveal white count 5.6, hemoglobin 15.3, platelet count 175, INR 1.3, sodium 138, potassium 3.6, BUN of 8, creatinine 0.65, and magnesium 1.6. Troponins were 0.040, 0.382, 0.355, and 0.228. The patient did report that he had mild chest discomfort approximately one week ago when he was shoveling snow but it subsided upon rest. The patient states this is chronic for him and was similiar to previous episodes he has had. Stool for occult blood was positive. He was admitted to the hospital under the care of Dr. Duckworth. Consultations were placed to pulmonology, cardiology, and gastroenterology. An echocardiogram was completed which revealed ejection fraction of 45-50%, mild aortic regurgitation, moderate aortic stenosis, mild mitral regurgitation, and mild tricuspid regurgitation. He was evaluated by technical instructor course developer who discontinued his aspirin and amlodipine and started him on metoprolol and Imdur. The patient was found to not be a candidate for aggressive cardiac workup at this time and will continue with medical management per cardiology. Patient underwent colonoscopy revealing 3cm ulcerated distal rectal mass and sigmoid diverticulosis. Oncology and general surgery were consulted for further evaluation after colonoscopy results. Oncology ordered CT of the chest abdomen and pelvis. This is to be completed today and then the patient may follow up on an outpatient basis with Dr. patience Rasmussen evaluated the patient and discussed possible treatment options. The patient does not wish to undergo a major surgery at this time. The patient is to follow up on an outpatient basis and may be a possible candidate for trans- anal excision for palliative measures. The patient was deemed stable for discharge per Dr. Duckworth. He is to follow up on an outpatient basis with Dr. Duckworth, Dr. rasmussen, and Dr. Becerril to discuss further treatment options. Biopsy results taken from the colonoscopy are currently pending. The patient is to continue holding his aspirin per Dr. Duckworth. His Norvasc was discontinued per cardiology. He was started on Imdur and metoprolol per cardiology during auscultation. Prescriptions were sent to the patient's preferred pharmacy for Imdur and metoprolol Discharge diagnosis Acute lower gastrointestinal bleeding with bright red blood per rectum, present on admission, s/p colonoscopy revealing 3cm ulcerated distal rectal mass and sigmoid diverticulosis Non-ST elevated myocardial infarction, troponins 0.040, 0.382, 0.355, and 0.228 , EKG with nonspecific ST-T wave changes, possible chronic stable angina pectoris per cardiology Essential hypertension Hyperlipidemia Gastroesophageal reflux disease Osteoarthritis Remote history of nicotine dependence Nurse practitioner note has been reviewed by physician. Signing provider agrees with the documented findings, assessment, and plan of care. Patient Condition at Discharge: Stable Plan - Discharge Summary Discharge Rx Participant: Yes New Discharge Prescriptions: New Isosorbide Mononitrate ER [Imdur] 30 mg PO DAILY #30 tab Metoprolol Tartrate [Lopressor] 25 mg PO BID #60 tab Continue Omeprazole [PriLOSEC] 20 mg PO HS Lisinopril-Hctz 20-25 mg [Zestoretic 20-25] 1 tab PO HS Simvastatin [Zocor] 10 mg PO HS Allopurinol [Zyloprim] 300 mg PO HS Discontinued amLODIPine [Norvasc] 2.5 mg PO HS Aspirin EC [Ecotrin Low Dose] 81 mg PO HS Discharge Medication List Omeprazole [PriLOSEC] 20 mg PO HS 04/19/14 [History] Lisinopril-Hctz 20-25 mg [Zestoretic 20-25] 1 tab PO HS 07/18/15 [History] Allopurinol [Zyloprim] 300 mg PO HS 07/18/17 [History] Simvastatin [Zocor] 10 mg PO HS 07/18/17 [History] Isosorbide Mononitrate ER [Imdur] 30 mg PO DAILY #30 tab 07/21/17 [Rx] Metoprolol Tartrate [Lopressor] 25 mg PO BID #60 tab 07/21/17 [Rx] Follow up Appointment(s)/Referral(s): Oziel Duckworth Jr, DO [Doctor of Osteopathic Medicine] - 3 Days Thanh Becerril MD [STAFF PHYSICIAN] - 1 Week Joseph Rasmussen DO [Doctor of Osteopathic Medicine] - 1 Week Darshan Casillas MD [STAFF PHYSICIAN] - 2 Weeks Discharge Disposition: HOME SELF-CARE
--- NOTE | 2017-07-21 14:45 | CT ---
EXAMINATION TYPE: CT ChestAbdPelvis w con DATE OF EXAM: 07/21/2017 INDICATION: rectal mass, staging COMPARISON: NONE CT DLP: 848 mGycm CONTRAST: Performed with Oral Contrast and with IV Contrast, patient injected with 100 mL of Omnipaque 300. TECHNIQUE: Axial images at 5 mm thick sections. Reconstructed images in the coronal plane. Delayed images through the kidneys. FINDINGS: CT CHEST: Portion of the thyroid visualized is normal. No suspicious lung nodules or focal infiltrates are present. No enlarged mediastinal or hilar adenopathy is evident. The ascending aorta diameter at the level of the main pulmonary artery is 3.7 cm. The main pulmonary artery diameter at the bifurcation is 2.4 cm. Small hiatal hernia is present. CT ABDOMEN: Liver: Normal Spleen: Normal Pancreas: Atrophic. Adrenal glands: The adrenal glands are normal. Gallbladder: Gallstones are present. Kidneys: No masses are evident. No hydronephrosis is present. No cysts are present. r 0.2 cm calci fication versus early excretion of contrast is within the mid right kidney. No hydronephrosis is evid ent. Delayed images were obtained through the kidneys, which remain unremarkable. Aorta: Vascular calcification is within the aorta. Inferior vena cava: Normal. CT PELVIS: Beam hardening artifact from left hip prosthesis is evident. Loops of bowel within the abdomen and pelvis are normal. There are loops of bowel which are incom pletely distended or lack oral contrast limiting their evaluation. Some scattered diverticuli are wit hin the descending colon and throughout the sigmoid colon. Appendix: Not identified compatible with the patient's surgical history. Urinary bladder: Normal. Genitourinary structures: Prostate is mildly prominent contains calcification Osseous structures: No suspicious lytic or sclerotic lesions. Old posttraumatic changes are evident w ithin the inferior pubic rami. Sacroiliac joint degenerative changes are present. Facet degenerative changes are present. Degenerative disc changes are in the lower lumbar spine IMPRESSIONS: 1. 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 2. Metastatic lesions are not identified.
--- NOTE | 2017-07-21 15:36 | P.PN ---
Subjective Progress Note Date: 07/21/17 This is an 87-year-old gentleman who presented to the hospital with GI bleeding. He underwent a colonoscopy and was found to have an ulcerated mass in the distal rectum. He is otherwise feeling well. Seen and examined this morning, breathing is stable. Denies any chest discomfort, palpitations or dizziness. No nausea or vomiting, he has not had a bowel movement since his procedure. Hemodynamically stable. Objective - Vital Signs Vital signs: Vital Signs Temp 97.6 F 07/21/17 08:00 Pulse 61 07/21/17 12:00 Resp 16 07/21/17 12:00 BP 120/78 07/21/17 12:00 Pulse Ox 94 L 07/21/17 12:00 Intake & Output 07/20/17 07/21/17 07/21/17 18:59 06:59 18:59 Intake Total 893 240 Output Total 150 Balance 893 90 Weight 64.5 kg Intake: IV 420 0.9 flush\ 20 Oral 473 240 Output: Urine 150 Other: Voiding Method Urinal # Voids 1 1 1 # Bowel Movements 0 - Exam PHYSICAL EXAMINATION: HEENT: Head is atraumatic, normocephalic. Pupils equal, round. Neck is supple. There is no elevated jugular venous pressure. HEART EXAMINATION: Heart S1, S2 systolic ejection murmur is heard. CHEST EXAMINATION: Lungs are clear to auscultation and precussion. No chest wall tenderness is noted on palpation or with deep breathing. ABDOMEN: Soft, nontender. Bowel sounds are heard. No organomegaly noted. EXTREMITIES: 2+ peripheral pulses with no evidence of peripheral edema and no calf tenderness noted. NEUROLOGIC patient is awake, alert and oriented -3. . - Labs CBC & Chem 7: 07/20/17 04:03 07/20/17 04:03 Assessment and Plan Plan: Assessment and plan #1 evidence of GI bleeding with ulcerated rectal mass, likely malignancy #2 probable non-ST elevation myocardial infarction #3 moderate aortic stenosis #4 hypertension #5 hyperlipidemia Plan Cardiology's perspective, we'll continue the patient on his current medications. We will follow him along with you now on an as-needed basis only, please don't hesitate to call with any questions. DNP note has been reviewed, I agree with a documented findings and plan of care. Patient was seen and examined.
[2017-07-21] MEDS ORDERED: PANTOPRAZOLE 40 MG TABLET PO SCH (17:30)
== END 2017-07-21 17:18 | disposition home or self-care (01) | DRG 374 ==
LOC: EC 07:43 → 6SEL 13:52 → 6ICU 07-19 01:08 → 6SEL 07-20 08:03
PROVIDERS: ADMIT Family Medicine; ATTEND Family Medicine
PROC: 0DBN8ZX Excision of Sigmoid Colon, Via Natural or Artificial Opening Endoscopic, Diagnostic (ICD-10-PCS; principal; 2017-07-18)
DX: C20 Malignant neoplasm of rectum (principal); I21.4 Non-ST elevation (NSTEMI) myocardial infarction; K57.31 Diverticulosis of large intestine without perforation or abscess with bleeding; I08.3 Combined rheumatic disorders of mitral, aortic and tricuspid valves; K21.9 Gastro-esophageal reflux disease without esophagitis; E78.00 Pure hypercholesterolemia, unspecified; E78.5 Hyperlipidemia, unspecified; I10 Essential (primary) hypertension; M10.9 Gout, unspecified; I44.0 Atrioventricular block, first degree; M19.90 Unspecified osteoarthritis, unspecified site; Z96.642 Presence of left artificial hip joint; Z87.891 Personal history of nicotine dependence; Z88.0 Allergy status to penicillin; Z79.899 Other long term (current) drug therapy; Z79.82 Long term (current) use of aspirin; Z81.8 Family history of other mental and behavioral disorders; Z82.49 Family history of ischemic heart disease and other diseases of the circulatory system; Z90.49 Acquired absence of other specified parts of digestive tract; Z90.89 Acquired absence of other organs; Z98.41 Cataract extraction status, right eye; Z98.42 Cataract extraction status, left eye; Z91.81 History of falling; Z87.19 Personal history of other diseases of the digestive system
CPT/HCPCS: 36415; 45380; 71260; 74018; 74177; 80048; 80053; 82272; 82550; 82553; 83735; 84100; 84484; 85025; 85027; 85610; 85730; 86850; 86900; 86901; 88305; 93005; 93306; 99285